=== PATIENT | female | born 1940 | race Caucasian/White ===

== ENCOUNTER 2022-11-13 13:49 | Emergency (ER) | payer MEDICARE, SELFPAY ==
[2022-11-13] VITALS (13 sets, daily range): BP systolic 118–163; BP diastolic 68–144; PULSE 85–96; RESP 18–20; TEMP 36.3; O2SAT 95–100
--- NOTE | ~2022-11-13 | US_ITS ---
EXAMINATION: US venous doppler [facility] DATE: 11/13/2022 14:35 INDICATION: REDNESS AND SWELLING . TECHNIQUE: Grayscale images without and with compression and Doppler images of the left lower extremi ty veins were obtained. COMPARISON: None FINDINGS: The left common femoral vein, profunda (deep) femoral vein, femoral vein, popliteal vein, peroneal v ein, posterior tibial veins, gastrocnemius vein, and greater saphenous vein are patent. Thrombosed to rtuous vessels in the subcutaneous tissues in the area of clinical concern. IMPRESSION: 1. Patent left lower extremity veins. No evidence of deep venous thrombosis. 2. 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 Reviewed, dictated and finalized at location K.
--- NOTE | ~2022-11-13 | CT_ITS ---
EXAMINATION: CT abdomen pelvis w con DATE: 11/13/2022 16:39 INDICATION: transaminitis, n/v/d, weight loss TECHNIQUE: Computed tomography (CT) of the abdomen and pelvis was performed with 100 mL Omnipaque-350 intravenous contrast. Automated exposure control and iterative reconstruction technique were employe d. The dose-length product was 321.06 mGy-cm. COMPARISON: None. FINDINGS: Lower thorax: Multiple bilateral sub-6 mm pulmonary nodules. Mild senescent/emphysematous change. Mil d bibasilar scar/atelectasis. Small fat-containing left diaphragmatic hernia. Liver: Mild hepatomegaly. Innumerable peripherally enhancing irregular hypodense liver lesions, the l argest in the medial aspect of the right lobe measuring at least 8.1 cm. Biliary/Gallbladder: Gallbladder wall calcification. No bile duct dilation. Pancreas: No mass or duct dilation. Spleen: Normal. Adrenals:No mass. Kidneys: Multiple left subcentimeter hypodensities, too small to characterize but most likely represe nt cysts. Simple right lower pole cyst. Punctate bilateral calculi. No suspicious mass, obstructing c alculus, or hydronephrosis. GI tract: Mild distal esophageal and gastric wall edema. No small or large bowel dilation. Normal anatoly endix. Mesentery/Peritoneum: No mass or free air. Enlarged upper abdominal and periaortic lymph nodes. Small volume ascites Retroperitoneum: No mass. Atherosclerotic abdominal aortic and/or arterial calcifications. Pelvis: Pelvic organs are within normal limits. Soft Tissues: Soft tissues and body wall unremarkable. Bones: No acute osseous finding. IMPRESSION: 1. Multiple sub-6 mm pulmonary nodules. 2. Innumerable liver masses, the largest measuring up to 8.1 cm, concerning for neoplastic disease. 3. Porcelain gallbladder. 4. Mild esophagitis/gastritis. 5. Mesenteric and periaortic lymphadenopathy. 6. Small volume ascites. Reviewed, dictated and finalized at location K.
--- NOTE | 2022-11-13 14:02 | ED.LOWEXIN ---
HPI - Extremity Injury (Lower) General Chief Complaint: Extremity Injury, Lower Stated Complaint: left leg pain Time Seen by Provider: 11/13/22 13:51 History of Present Illness HPI Narrative: Patient is a 82-year-old female here for evaluation of redness, swelling and pain to the left lower extremity. Patient states that she started to develop the symptoms about 2 weeks ago. The area is warm and tender to touch. She has been taking Tylenol with good relief of her symptoms. She denies any weakness, numbness, tingling, nausea, vomiting, fevers or chills at home. Patient's friend was concerned given the spreading redness in her extremity and recommended her to come to the ED. Additionally, patient reports unintentional 50 pound weight loss over the past 6 months, postprandial abdominal pain, frequent diarrhea with light-colored stools, nausea and decreased interest in p.o. She does not have a primary care doctor but called to make an appointment when his symptoms came on and has been unable to get into see them until November. She has never had a colonoscopy or seen a GI doctor. Related Data Home Medications Medication Instructions Recorded Confirmed No Home Medications 11/13/22 11/13/22 Allergies Allergy/AdvReac Type Severity Reaction Status Date / Time No Known Allergies Allergy Verified 11/13/22 14:01 Review of Systems Review of Systems: Gen: Denies fevers or chills Eyes: Denies eye pain or visual change ENT: Denies congestion Respiratory: Denies shortness of breath or cough CV: Denies chest pain or palpitations GI: Denies abdominal pain nausea, emesis or diarrhea : denies burning, urgency, frequency or hematuria Musculoskeletal: Denies back pain or muscle pain Neuro: Denies numbness, tingling, weakness or focal weakness Skin: Reports redness, swelling and pain to the left lower extremity Except as documented, all other systems reviewed and negative Exam Narrative: APPEARANCE: Well appearing, no pain in distress, well-nourished. Head: Normocephalic and atraumatic. EYES: PERRLA/EOMI, conjunctivae clear NOSE: No nasal drainage EARS: External ear normal in appearance THROAT: Oropharynx is clear. Mucous membranes are moist. NECK: Supple. No adenopathy, no masses. RESPIRATORY: Airway patent, respirations nonlabored. Clear to auscultation bilaterally, no rales, rhonchi, wheezing. CARDIOVASCULAR: 2+ DP and PT pulses bilaterally. Regular rate and rhythm without murmurs, rubs, or gallops. ABDOMINAL: Normoactive bowel sounds. Soft, nontender, nondistended. No rebound tenderness or guarding. MUSCULOSKELETAL: Extremities are warm and well-perfused. Moves all extremities well. No edema. NEURO: Normal speech. No focal neurologic deficits. SKIN: There is a 4 x 4 cm area of erythema to the left medial knee/popliteal fossa that is tender to palpation and warm to touch. there are venous stasis changes to the bilateral lower extremities. PSYCHIATRIC: Normal affect/mood. Course Vital Signs Vital signs: Vital Signs Temperature 97.4 F L 11/13/22 13:56 Pulse Rate 96 11/13/22 13:56 Respiratory Rate 20 11/13/22 13:56 Blood Pressure 118/91 H 11/13/22 13:56 Pulse Oximetry 100 11/13/22 13:56 Oxygen Delivery Room Air 11/13/22 13:56 Temperature 97.4 F L 11/13/22 13:56 Pulse Rate 85 11/13/22 18:16 Respiratory Rate 18 11/13/22 18:16 Blood Pressure 143/96 H 11/13/22 18:16 Pulse Oximetry 95 11/13/22 18:16 Oxygen Delivery Room Air 11/13/22 13:56 MDM - Extremity Injury (Lower) MDM Narrative Medical decision making narrative: 82-year-old female here for evaluation of redness and swelling to the left medial knee. Evidence of superficial thrombophlebitis on the ultrasound which likely explains her symptoms. NVID. Additionally, patient complaining of some chronic diarrhea, unintentional weight loss, GI symptoms x 6 months. her liver enzymes are markedly elevated (Alk phos >1500), CT scan o
[2022-11-13 14:26] LABS: Basophils Percent Auto 0.3 % (0.2-1.2); Eosinophils Percent Auto 0.1 % (0-4.4); Hemoglobin 12.5 g/dL (12.0-15.0); Immature Granulocyte Absolute 0.11 K/mm3 (0.00-0.031); Immature Granulocyte Percent A 0.8 % (0-0.5); Lymphocytes Absolute Auto 1.42 K/mm3 (0.9-3.2); Lymphocytes Percent Auto 9.7 % (18.3-44.2); Mean Corpuscular HGB Conc 32.9 g/dl (32-36); Mean Corpuscular Hemoglobin 29.8 pg (26-34); Mean Corpuscular Volume 90.7 fl (80-100); Neutrophils Percent Auto 82.1 % (45.5-73.1); Platelet Count Result 445 k/mm3 (150-375); Red Blood Count 4.19 M/mm3 (4.2-5.4); White Blood Count 14.6 K/mm3 (4.5-10.0)
[2022-11-13 14:36] LABS: INR 1.1
[2022-11-13 14:43] LABS: Alanine Aminotransferase 76 U/L (6-35); Albumin Level 3.5 g/dL (3.5-5.1); Alkaline Phosphatase 1465 U/L (38-126); Anion Gap 8 mmol/L (8-16); Aspartate Amino Transferase 170 U/L (14-36); Bilirubin,Total 1.6 mg/dL (0.2-1.3); Blood Urea Nitrogen 22 mg/dL (7-17); Calcium 8.2 mg/dL (8.4-10.2); Carbon Dioxide 24 mmol/L (22-30); Chloride 103 mmol/L (98-107); Estimated CRCL calculation 33 ml/min; Estimated Glomerular Filt Rate 60; Glucose 100 mg/dL (65-110); Potassium 4.3 mmol/L (3.4-5.0); Sodium 135 mmol/L (137-145)
[2022-11-13 15:22] LABS: Lipase 326 U/L (23-300)
[2022-11-13 19:06] LABS: Carcinoembryonic Antigen 34.2 ng/mL (0.0-3.0)
[2022-11-16 05:25] LABS: CA-125 87 U/mL (<35)
== END 2022-11-13 18:46 | disposition home or self-care (01) ==
PROVIDERS: Emergency Provider Physician Assistant; PCP Family Medicine
DX: I80.02 Phlebitis and thrombophlebitis of superficial vessels of left lower extremity (principal); R16.0 Hepatomegaly, not elsewhere classified; R91.8 Other nonspecific abnormal finding of lung field; K29.70 Gastritis, unspecified, without bleeding; K20.90 Esophagitis, unspecified without bleeding; K82.8 Other specified diseases of gallbladder
CPT/HCPCS: 36415; 74177; 80053; 82378; 83690; 85025; 85610; 85730; 86304; 93971; 99284; Q9967

== ENCOUNTER 2022-11-28 11:20 | Outpatient (CLI) | payer MEDICARE, SELFPAY ==
--- NOTE | ~2022-11-28 | CT_ITS ---
EXAMINATION:CT diagnostic chest w con DATE: 11/28/2022 11:54 INDICATION: Malignant neoplasm metastatic to lung. TECHNIQUE: Computed tomography (CT) of the chest was performed with 75 mL Omnipaque 350 intravenous c ontrast. Automated exposure control and iterative reconstruction technique were employed. The dose-le ngth product (DLP) was 129.67 mGy-cm. COMPARISON: CT abdomen and pelvis 11/13/2022 FINDINGS: There is mild atelectasis bilaterally. No pleural effusion. The heart size is normal. No pe ricardial effusion. There are acute pulmonary emboli in the right upper lobe, right middle lobe, righ t lower lobe, and left lower lobe. The heart size is normal. No pericardial effusion. There are coron bo artery calcifications. There are numerous masses in the liver. There are wall calcifications of t he gallbladder. There is severe cervical spondylosis and moderate thoracic spondylosis. There is mild chronic anterior wedging of multiple thoracic vertebral bodies. There is an old healed fracture of t he sternum. IMPRESSION: 1. Bilateral acute pulmonary emboli. I discussed this result with the patient by phone. She agreed to go to the ER. 2. Liver masses, consistent metastatic disease. Ultrasound-guided core needle biopsy is recommended. Reviewed, dictated and finalized at location A. IMPRESSION: 1. Bilateral acute pulmonary emboli. I discussed this result with the patient b y phone. She agreed to go to the ER. 2. Liver masses, consistent metastatic disease. Ultrasound-guided core needle b iopsy is recommended.
== END 2022-11-28 11:21 | disposition home or self-care (01) ==
LOC: ANHIMG 11:21
PROVIDERS: PCP Family Medicine; Visit Provider Internal Medicine Hematology & Oncology
DX: C78.00 Secondary malignant neoplasm of unspecified lung (principal); I26.99 Other pulmonary embolism without acute cor pulmonale; K76.89 Other specified diseases of liver
CPT/HCPCS: 71260; Q9967

== ENCOUNTER 2022-11-28 17:44 | Observation (INO) | payer MEDICARE, SELFPAY ==
[2022-11-28] VITALS (20 sets, daily range): BP systolic 108–136; BP diastolic 60–101; PULSE 76–102; RESP 14–23; TEMP 36.4–36.6; O2SAT 92–100; BMI 23.1
--- NOTE | ~2022-11-28 | US_ITS ---
EXAMINATION: US biopsy liver DATE: 11/29/2022 12:35 INDICATION: Liver mass. TECHNIQUE: The procedure including the risks, benefits, and alternatives was discussed with the patie nt. Risks discussed included bleeding and infection. The patient understood the risks and agreed to p roceed. The skin overlying the liver was prepped and draped in usual sterile fashion. Anesthetic was administered with 1% lidocaine subcutaneously. An 18 gauge core biopsy needle was then used to obta in 3 core biopsy specimens under continuous sonographic guidance. The entry site was cleaned and dres sed. There were no immediate complications. FINDINGS: Ultrasound images demonstrate the needle in an 8 cm ill-defined hypoechoic mass in the live r. IMPRESSION: 1. Ultrasound-guided core needle biopsy of a liver mass. Reviewed, dictated and finalized at location A.
--- NOTE | 2022-11-28 18:02 | ECG_ITS ---
Measurements Intervals [place] Rate: 85 P: 12 [place]: 131 QRS: -21 QRSD: 72 T: 14 QT: 337 QTc: 401 Interpretive Statements SINUS RHYTHM ANTERIOR INFARCT, AGE INDETERMINATE INFERIOR INFARCT, AGE INDETERMINATE ABNORMAL ECG NO PREVIOUS ECG AVAILABLE FOR COMPARISON Electronically Signed On 11-28-2022 20:24:02 CDT by Abdifatah Alcantara D.O.
[2022-11-28 18:13] LABS: Basophils Absolute Auto 0.1 K/mm3 (0.0-0.1); Basophils Percent Auto 0.4 % (0.2-1.2); Eosinophils Absolute Auto 0.1 K/mm3 (0-0.3); Eosinophils Percent Auto 0.6 % (0-4.4); Hematocrit 36.8 % (37.0-47.0); Hemoglobin 12.2 g/dL (12.0-15.0); Immature Granulocyte Percent A 1.2 % (0-0.5); Lymphocytes Absolute Auto 2.21 K/mm3 (0.9-3.2); Lymphocytes Percent Auto 13.7 % (18.3-44.2); Mean Corpuscular HGB Conc 33.2 g/dl (32-36); Mean Corpuscular Hemoglobin 30.3 pg (26-34); Mean Corpuscular Volume 91.3 fl (80-100); Mean Platelet Volume 9.4 fl (7.4-10.4); Monocytes Absolute Auto 1.6 K/mm3 (0.1-0.6); Monocytes Percent Auto 9.9 % (2.6-8.5); Neutrophils Percent Auto 74.2 % (45.5-73.1); Platelet Count Result 382 k/mm3 (150-375); Red Blood Count 4.03 M/mm3 (4.2-5.4); Red Cell Distribution Width 19.2 % (11.5-14.5); White Blood Count 16.2 K/mm3 (4.5-10.0)
[2022-11-28 18:24] LABS: INR 1.3; Partial Thromboplastin Time 35.9 SECONDS (22.3-36.8)
[2022-11-28 18:27] LABS: Alanine Aminotransferase 68 U/L (6-35); Anion Gap 8 mmol/L (8-16); Aspartate Amino Transferase 202 U/L (14-36); Bilirubin,Total 2.9 mg/dL (0.2-1.3); Blood Urea Nitrogen 19 mg/dL (7-17); Carbon Dioxide 25 mmol/L (22-30); Chloride 105 mmol/L (98-107); Estimated CRCL calculation 38 ml/min; Estimated Glomerular Filt Rate > 60; Glucose 110 mg/dL (65-110); Potassium 4.1 mmol/L (3.4-5.0); Sodium 138 mmol/L (137-145)
[2022-11-28] MEDS: ENOXAPARIN 60 MG/0.6 ML SYRINGE SUB-Q (18:57)
[2022-11-28 19:10] LABS: Alkaline Phosphatase 1615 U/L (38-126)
--- NOTE | 2022-11-28 19:17 | ED.RECABL ---
HPI - Recheck/Abnormal Lab/Rx General Chief Complaint: Recheck/Abnormal Lab/Rx Stated Complaint: abn Time Seen by Provider: 11/28/22 18:02 Source: patient and RN notes reviewed Mode of arrival: ambulatory Limitations: no limitations History of Present Illness HPI narrative: This is an 82 year old female who presents for evaluation of pulmonary emboli. Patient is currently being evaluated for metastatic disease by Dr. Palafox. He performed CT chest to assess and it showed bilateral pulmonary emboli. She denies chest pain, shortness of breath, dizziness or lightheadedness. She was diagnosed with thrombosed varicose vein to right leg on 11/12/22. She denies previous history of PE or DVT. They are still trying to assess source of her cancer. Prior to her ER visit in October, she states she has not seen a doctor in 20 years. Related Data Home Medications Medication Instructions Recorded Confirmed megestrol 400 mg/10 mL (40 mg/mL) mg 11/28/22 oral suspension Allergies Allergy/AdvReac Type Severity Reaction Status Date / Time No Known Allergies Allergy Verified 11/28/22 17:57 Review of Systems Constitutional: Constitutional: Denies weakness Cardiovascular: Cardiovascular: Denies syncope, Denies rapid heart rate, Denies irregular heart rhythm, Reports leg edema and Denies dyspnea Respiratory: Respiratory: Denies chest congestion, Denies hemoptysis, Denies excessive phlegm production and Denies dyspnea Gastrointestinal: Gastrointestinal: Denies abdominal pain, Denies hematochezia, Denies diarrhea and Denies vomiting Genitourinary: Genitourinary: Denies hematuria and Denies dysuria Musculoskeletal: Musculoskeletal: Denies joint swelling, Denies loss of height and Denies muscle weakness Neurologic: Denies syncope, Denies focal weakness and Denies weakness PMFSH Past Medical History Medical History (Updated 11/28/22 @ 20:43 by Alice Hinojosa DO) Mass of multiple sites of liver Metastatic disease Social History Social History Smoking status: Never smoker Lack of Transportation: No Lack of Food: Never True Current Housing: I Have Housing Concerned About Future Housing: No Difficulty Paying Gas/Electric Bills: No Difficulty Paying for Meds: No Currently Unemployed: No Education: Don't Know Difficulty w/ Childcare or Family Care: No Spiritual care concerns: No Exam Const: General: no acute distress and alert Nutritional Appearance: well nourished Orientation/consciousness: patient oriented x3 Limitations: no limitations HENMT: Head: normal to inspection Eyes: EOM: EOMs intact bilaterally Neck: Neck: normal visual inspection Chest: Chest palpation & inspection: normal inspection of the chest Resp: Effort & Inspection: normal respiratory effort Auscultation: clear to auscultation bilaterally Cardio: Rate: tachycardic Rhythm: regular rhythm Heart sounds: no murmurs GI: GI Palp: Yes Soft to palpation, No Tenderness to palpation present (GI), No Guarding due to palpation present (GI) and No Rigid due to palpation Auscultation: normal bowel sounds Skin: General skin exam: normal color Rashes: no rashes Neuro: General: patient oriented x3, moves all extremities and CN's II-XI intact bilaterally Extrem: General: normal to inspection Psych: Mental Status: mental status grossly normal Affect: normal affect Attitude: cooperative Course Consultations Consultation #1: I Discussed with Margarita about patient recent CT and today with pulmonary emboli but asymptomatic. Given dose of lovenox Date: 11/28/22 Time: 18:45 Vital Signs Vital signs: Vital Signs Temperature 97.6 F 11/28/22 17:44 Pulse Rate 102 H 11/28/22 17:44 Respiratory Rate 18 11/28/22 17:44 Blood Pressure 120/90 11/28/22 17:44 Pulse Oximetry 97 11/28/22 17:44 Temperature 97.9 F 11/28/22 20:40 Pulse Rate 76 11/28/22 20:40 Respiratory Rate 18 11/28/22 20:40 Blood Pressure
--- NOTE | 2022-11-28 20:22 | PM.IMHP ---
H&P: HPI History of Present Illness Date/Time: 11/28/22 20:22 Chief Complaint: Incidental finding of pulmonary embolism on CT chest Narrative: 82-year-old female with a past medical history of recent diagnosis of metastatic cancer of uncertain primary who presented to the ER from home after CT of the chest demonstrated incidental finding of bilateral pulmonary embolism. The patient was initially evaluated 11/13/2022 in the ER due to redness and swelling of the left lower extremity. She had venous Doppler at that time which demonstrated superficial venous thromboembolism. She had also been complaining of unintentional weight loss of 50 lb over the last 6 months, postprandial abdominal pain, decreased oral intake, nausea and frequent diarrhea. She had a CT of the abdomen and pelvis at that time which demonstrated multiple pulmonary nodules and innumerable liver masses the largest measuring 8.[address] also demonstrated in so findings of esophagitis and gastritis, porcelain gallbladder and mesenteric and para-aortic lymphadenopathy with a small volume of ascites. The patient did not have a primary care provider and had not seen a doctor in over 20 years. She has never had a colonoscopy. She has not had a breast exam or pelvic exam in at least 20 or 30 years. She was referred to Dr. Palafox from Oncology and Dr. Galdamez general surgery. Dr. Galdamez recommended the patient be referred to a hepatobiliary surgeon but the patient refused to stay in the hospital. Dr. Palafox requested a CA 125 which came back elevated at 87 and a carcinoembryonic Ag which came back elevated at [address] Palafox on the and at that time he ordered a CT of the chest with contrast. She underwent CT scan today which demonstrated bilateral acute pulmonary emboli and was referred to the ER by the radiologist who read the study for treatment. She reports that ever since her last ER visit her left leg is been giving her some trouble. She has felt a cord-like cannot behind her left knee and up into her thigh. She denied any increased lower extremity swelling compared to back in October. She reports that the pain has been improved when she uses warm compresses. She reports that ice makes the pain worse. She has been massaging the back of her leg without much relief in her symptoms. She denies any cough or cold symptoms. She denies any dyspnea on exertion. She is usually very active and does gardening and is completely independent in her activities of daily living. However given her recent diagnosis she has slowed down and has been trying to take it easy. She is tachycardic in the ER but her blood pressures were stable. She denies any palpitations. She reports that food just does not taste right. She reports early satiety. She has had a 40 lb weight loss since April. She was given therapeutic Lovenox and admitted to the hospital for observation. She states that she was referred to [facility] in [place] for a liver biopsy because it was going to takes too long to get any biopsy here. The early she could get the biopsy arranged at [facility] was the 1st week in December. She is supposed to follow-up with Dr. Palafox in 1 week. Review of Systems Review of Systems: 12 systems were reviewed with pertinent positives and negatives per HPI. Except as documented in the HPI, all other systems were reviewed and are negative. [facility] Past Medical History Medical History (Updated 11/29/22 @ 00:44 by Alice Hinojosa DO) Mass of multiple sites of liver Metastatic disease Surgical History Surgical History (Updated 11/29/22 @ 00:44 by Alice Hinojosa DO) Lipoma of left thigh Status post excision Status post cataract extraction of both eyes with insertion of intraocular lens Family History Family History (Updated 11/29/22 @ 00:46 by Alice Hinojosa DO) Daughter Diabetes mellitus Father , At age 75 Pneumonia Mother , At age 84
--- NOTE | 2022-11-28 20:59 | ADMGEN ---
This patient, Charo Carroll, was admitted to [facility] Surg Room 329-01. Patient/family oriented to hospital policies and general routines including ID bracelet, bed and alarms, visiting hours, pain management, procedures, bathroom and other care routines, personal items, smoking policy, room service/diet, and visiting hours. Information on how to activate the Rapid Response Team has been discussed. Patient/Family are encouraged to report perceived risks to care and to ask questions if they do not understand what they are told or what they should do.
[2022-11-29] VITALS (11 sets, daily range): BP systolic 121–134; BP diastolic 62–80; PULSE 70–97; RESP 12–18; TEMP 36.3–37; O2SAT 97–100; BMI 23.1
--- NOTE | 2022-11-29 | ECHO_ITS ---
Patient Info Name: Charo Carroll Age: 82 years : 1940 Gender: Female Ht: 63 in Wt: 126 lbs BSA: 1.60 m2 HR: 70 bpm BP: 123 / 60 mmHg Heart Rhythm: Sinus Rhythm Technical Quality: Good Exam Date: 11/29/2022 1:57 PM Exam Location: [facility] Patient Status: Outpatient Admit Date: 11/28/2022 Staff Ordering Physician: Alice Hinojosa DO Visual Merchandising Coordinator: Chelsea Huitron RDCS Attending Provider: Constantin Arguelles MD Referring Physician: Micaela CARRANZA; Exam Type: CA echo doppler color flow Study Info Indications - Bilateral pulmonary embolsm Complete two-dimensional, color flow and Doppler transthoracic echocardiogram is performed. Summary 1. Complete two-dimensional, color flow and Doppler transthoracic echocardiogram is performed. 2. Left ventricular chamber dimension is normal. 3. Left ventricular systolic function is normal, estimated at 65-70%. 4. The left ventricular diastolic function is grade I diastolic dysfunction. 5. E/e' 13 is mildly elevated. 6. There is mild aortic valve sclerosis. 7. There is trace mitral valve regurgitation. 8. There is mild to moderate tricuspid valve regurgitation. 9. No pulmonary hypertension, estimated pulmonary arterial systolic pressure is 38 mmHg. Left Ventricle E/e' 13 is mildly elevated. Left ventricular chamber dimension is normal. Left ventricular systolic function is normal, estimated at 65-70%. The left ventricular diastolic function is grade I diastolic dysfunction. Right Ventricle Right ventricular chamber dimension is normal. Right ventricular systolic function is normal. Left Atria Left atrial chamber dimension is normal. Right Atria Right atrial chamber dimension is normal. Aortic Valve The aortic valve is trileaflet. There is mild aortic valve sclerosis. There is no aortic valve stenosis. There is no aortic valve regurgitation. Pulmonic Valve There is no pulmonic regurgitation. Mitral Valve There is no mitral valve stenosis. There is trace mitral valve regurgitation. Tricuspid Valve There is mild to moderate tricuspid valve regurgitation. No pulmonary hypertension, estimated pulmonary arterial systolic pressure is 38 mmHg. Pericardium/Pleural There is no pericardial effusion. Inferior Vena Cava Normal inferior vena cava with >50% collapse upon inspiration consistent with normal right atrial pressure, 5 mmHg. Aorta The aortic root size at the sinus of Valsalva is normal. Left Ventricular Outflow Tract Name Value Normal LVOT 2D LVOT Diameter 2.0 cm LVOT Doppler LVOT Peak Gradient 6 mmHg LVOT Mean Gradient 3 mmHg LVOT VTI 22 cm LVOT VTI/AV VTI Ratio 0.7 LVOT Stroke Volume 73 ml LVOT CO 5.3 l/min LVOT CI 3.3 l/min/m2 Pulmonic Valve Name Value Normal RVOT Doppler
[2022-11-29 06:27] LABS: Basophils Absolute Auto 0.1 K/mm3 (0.0-0.1); Basophils Percent Auto 0.6 % (0.2-1.2); Eosinophils Absolute Auto 0.1 K/mm3 (0-0.3); Hematocrit 33.3 % (37.0-47.0); Hemoglobin 11.1 g/dL (12.0-15.0); Immature Granulocyte Absolute 0.18 K/mm3 (0.00-0.031); Immature Granulocyte Percent A 1.5 % (0-0.5); Lymphocytes Absolute Auto 1.53 K/mm3 (0.9-3.2); Lymphocytes Percent Auto 12.9 % (18.3-44.2); Mean Corpuscular HGB Conc 33.3 g/dl (32-36); Mean Corpuscular Hemoglobin 30.3 pg (26-34); Mean Platelet Volume 9.4 fl (7.4-10.4); Monocytes Absolute Auto 1.4 K/mm3 (0.1-0.6); Neutrophils Absolute Auto 8.5 K/mm3 (1.3-6.7); Platelet Count Result 315 k/mm3 (150-375); Red Blood Count 3.66 M/mm3 (4.2-5.4); Red Cell Distribution Width 19.2 % (11.5-14.5); White Blood Count 11.8 K/mm3 (4.5-10.0)
[2022-11-29 06:37] LABS: INR 1.3; Prothrombin Time 16.7 Seconds (11.1-14.7)
[2022-11-29 06:39] LABS: Partial Thromboplastin Time 49.6 SECONDS (22.3-36.8)
[2022-11-29 06:45] LABS: Alanine Aminotransferase 63 U/L (6-35); Albumin Level 2.7 g/dL (3.5-5.1); Anion Gap 7 mmol/L (8-16); Aspartate Amino Transferase 197 U/L (14-36); Blood Urea Nitrogen 15 mg/dL (7-17); Calcium 7.7 mg/dL (8.4-10.2); Carbon Dioxide 24 mmol/L (22-30); Chloride 104 mmol/L (98-107); Estimated CRCL calculation 50 ml/min; Estimated Glomerular Filt Rate > 60; Glucose 91 mg/dL (65-110); Potassium 4.2 mmol/L (3.4-5.0); Sodium 135 mmol/L (137-145)
[2022-11-29 08:07] LABS: Alkaline Phosphatase 1530 U/L (38-126)
--- NOTE | 2022-11-29 10:21 | PM.IMPN ---
Progress Note: A&P Assessment and Plan (1) Bilateral pulmonary embolism: Code(s): I26.99 - Other pulmonary embolism without acute cor pulmonale Status: Acute Assessment and Plan: Patient was started on Lovenox in the emergency department morning dose held due to plan for liver biopsy. After liver biopsy we will resume anticoagulation. (2) Widespread metastatic malignant neoplastic disease: Code(s): C80.0 - Disseminated malignant neoplasm, unspecified Status: Acute Assessment and Plan: Patient undergo liver biopsy today as there were numerous masses in the liver with elevated liver enzymes, elevated bilirubin, elevated alk-phos and elevated LDH (3) Periaortic lymphadenopathy: Code(s): R59.0 - Localized enlarged lymph nodes Status: Acute Assessment and Plan: See above (4) Ascites: Qualifiers: Ascites type: malignant Qualified Code(s): R18.0 - Malignant ascites Code(s): R18.8 - Other ascites Status: Acute Assessment and Plan: No abdominal pain no tenderness to palpation no suspicion of SBP (5) Mass of multiple sites of liver: Code(s): R16.0 - Hepatomegaly, not elsewhere classified Status: Acute Assessment and Plan: Patient did undergo liver biopsy today then resume anticoagulation. Patient has follow-up visit with Dr. Devine in 1 week (6) Pulmonary nodules: Code(s): R91.8 - Other nonspecific abnormal finding of lung field Status: Acute Assessment and Plan: See above (7) Mesenteric lymphadenopathy: Code(s): R59.0 - Localized enlarged lymph nodes Status: Acute Assessment and Plan: See above (8) Esophagitis with gastritis: Code(s): K29.70 - Gastritis, unspecified, without bleeding; K20.90 - Esophagitis, unspecified without bleeding Status: Acute Assessment and Plan: No pain but she does have early [place] when eating. Will begin PPI (9) Leukocytosis: Qualifiers: Leukocytosis type: leukemoid reaction Qualified Code(s): D72.823 - Leukemoid reaction Code(s): D72.829 - Elevated white blood cell count, unspecified Status: Acute Assessment and Plan: Suspected to be reactive to metastatic disease no source of infection identified or strongly suspected. Already improving without intervention. Plan After discussion with patient she would like to use this hospitalization to gather information to narrow down source of primary malignancy to guide discussion with Oncology regarding next steps. Patient is very independent and highly capable despite advanced age and advanced stage of disease. She has no pain and no dyspnea. Patient wishes for medical management of PE and wishes to be discharged home as soon as possible. Time Spent With Patient Time with patient: 25 - 35 minutes Subjective Date/time seen: 11/29/22 10:21 Interval history: 11/28: copied from previous note Incidental finding of pulmonary embolism on CT chest Narrative: 82-year-old female with a past medical history of recent diagnosis of metastatic cancer of uncertain primary who presented to the ER from home after CT of the chest demonstrated incidental finding of bilateral pulmonary embolism.? The patient was initially evaluated 11/13/2022 in the ER due to redness and swelling of the left lower extremity.? She had venous Doppler at that time which demonstrated superficial venous thromboembolism.? She had also been complaining of unintentional weight loss of 50 lb over the last 6 months, postprandial abdominal pain, decreased oral intake, nausea and frequent diarrhea.? She had a CT of the abdomen and pelvis at that time which demonstrated multiple pulmonary nodules and innumerable liver masses the largest measuring 8.[address] also demonstrated in so findings of esophagitis and gastritis, porcelain gallbladder and mesenteric and para-aortic lymphadenopathy with a small volume of ascite
[2022-11-29 10:49] LABS: Immature Reticulocyte Fraction 11.8 % (3.0-15.9); Reticulocyte Hemoglobin Conten 34.1 pg (28.2-35.7); Reticulocytes Absolute 0.08 M/mm3 (0.02-0.1)
[2022-11-29] MEDS: PANTOPRAZOLE SODIUM IV 40 MG VIAL IV PUSH (10:54)
[2022-11-29 11:05] LABS: Iron 42 ug/dL (37-170)
[2022-11-29 11:06] LABS: Bilirubin Direct 0.4 mg/dL (0-0.3); Lactate Dehydrogenase 443 U/L (120-246)
[2022-11-29 11:15] LABS: Percent Iron Saturation 26 % (20-50)
[2022-11-29 11:38] LABS: Vitamin D 25 Hydroxy 35.3 ng/mL
[2022-11-29] MEDS: ENOXAPARIN 60 MG/0.6 ML SYRINGE 55 MG SUB-Q (17:03)
--- NOTE | 2022-11-29 17:47 | PDONCCN ---
HPI - Date of Consult Date/Time: 11/29/22 17:47 Requesting Physician: Constantin Arguelles MD Primary Care Provider: Christy Mckeon MD - Consult Narrative Reason for consult: Metastatic cancer. Narrative: Charo Carroll is a 82 year old female who was seen in the hospital on November 22 with complain of 6 months history of intermittent diarrhea along with 40 lb weight loss. She was having intermittent nausea vomiting and left lower extremity swelling. She denies any previous history of malignancy. CT abdomen and pelvis was performed that showed innumerable liver masses with the largest 8.1 cm along with mesenteric and periaortic lymphadenopathy and small volume of ascites. CEA was elevated at 34 and CA 125 was 87. Patient was referred for ultrasound-guided liver biopsy and CT scan of the chest. CT scan of the chest was performed that showed bilateral acute pulmonary embolism. Patient was called to come back to the hospital where she was admitted. Patient underwent ultrasound-guided liver biopsy today and was started on Lovenox. Doppler studies also showed patent left lower extremity with no evidence of DVT. There was thrombosed varicose vein in the area of clinical concern. Review of Systems - Review of Systems All systems reviewed & are unremarkable except as noted in HPI and bel - Neurologic Denies syncope, Denies focal weakness, Denies weakness PMFSH Medical History: Medical History (Last Updated 11/29/22 @ 00:44 by Alice Hinojosa DO) Mass of multiple sites of liver Metastatic disease Surgical History: Surgical History (Last Updated 11/29/22 @ 00:44 by Alice Hinojosa DO) Lipoma of left thigh Status post excision Status post cataract extraction of both eyes with insertion of intraocular lens Family History: Family History (Last Updated 11/29/22 @ 00:46 by Alice Hinojosa DO) Daughter Diabetes mellitus Father , At age 75 Pneumonia Mother , At age 84 Jaundice Cancer - Social History Social History: Social History (Last Updated 11/29/22 @ 00:50 by Alice Hinojosa DO) Alcohol Use: Alcohol intake: current Alcohol use details: Rare and in small amounts Substance Use: Substance use: never Others: Spiritual care concerns: No Smoking Status: Smoking status: Never smoker Social Determinants of Health: Has the Lack of Transportation Kept You From Medical Appointments or From Getting Medications?: No Within the Past 12 Months, Were You Worried Whether Your Food Would Run Out Before You Got Money to Buy More?: Never True What is Your Housing Situation Today?: I Have Housing Are You Worried That in the Next 2 Months, You May Not Have Your Own Housing to Live In?: No Do You Have Trouble Paying Your Heating Or Electricity Bill?: No Do You Have Trouble Paying For Medicines?: No Are You Currently Unemployed and Looking for Work?: No Highest Level of Education Completed: Don't Know Do You Have Trouble With Childcare or the Care of a Family Member?: No Exam - Vital Signs Vital Signs - 24 hr 11/28/22 18:03 11/28/22 18:04 11/28/22 18:15 Temperature Pulse Rate 101 H 97 84 Respiratory Rate 23 H 22 H 22 H Blood Pressure 136/88 Pulse Oximetry 92 94 97 Oxygen Delivery 11/28/22 18:16 11/28/22 18:30 11/28/22 18:31 Temperature Pulse Rate 84 82 89 Respiratory Rate 20 20 18 Blood Pressure 123/78 117/68 Pulse Oximetry 96 96 96 Oxygen Delivery 11/28/22 18:57 11/28/22 19:00 11/28/22 19:15 Temperature Pulse Rate 90 78 76 Respiratory Rate 19 16 19 Blood Pressure Pulse Oximetry 96 97 93 Oxygen Delivery 11/28/22 19:30 11/28/22 19:45 11/28/22 20:00 Temperature Pulse Rate 83 81 Respiratory Rate 20 21 H 21 H Blood Pressure Pulse Oximetry 95 96 95 Oxygen Delivery 11/28/22 20:14 11/28/22 20:15 11/28/22 20:16 Temperature Pulse Rate 82
--- NOTE | 2022-11-29 18:38 | PC.NURSE ---
Pt is A&O4 female who participates and contributes in plan of care. Pt went for biopsy today and was compliant with plan of care. Pt was NPO for much of the day. Pt was resumed to a clear liquid diet and she tolerated well. Pt was then advanced to a regular diet and is tolerating well. Pt was changed from stand by to up ad kuldeep. Pt has been steady with ambulation. Pt reports no pain and expresses no needs at this time. Will continue to monitor pt.
[2022-11-30] VITALS: PULSE 70
[2022-11-30 04:00] VITALS: PULSE 86
[2022-11-30] MEDS: ENOXAPARIN 60 MG/0.6 ML SYRINGE 55 MG SUB-Q (05:48)
[2022-11-30 06:00] VITALS: BP 117/64; PULSE 76; RESP 16; TEMP 36.2; O2SAT 96
[2022-11-30 07:13] LABS: Basophils Absolute Auto 0.1 K/mm3 (0.0-0.1); Basophils Percent Auto 0.4 % (0.2-1.2); Eosinophils Absolute Auto 0.1 K/mm3 (0-0.3); Eosinophils Percent Auto 0.6 % (0-4.4); Hematocrit 33.4 % (37.0-47.0); Hemoglobin 11.1 g/dL (12.0-15.0); Immature Granulocyte Absolute 0.19 K/mm3 (0.00-0.031); Immature Granulocyte Percent A 1.5 % (0-0.5); Lymphocytes Absolute Auto 1.37 K/mm3 (0.9-3.2); Lymphocytes Percent Auto 10.8 % (18.3-44.2); Mean Corpuscular HGB Conc 33.2 g/dl (32-36); Mean Corpuscular Hemoglobin 30.2 pg (26-34); Mean Platelet Volume 9.3 fl (7.4-10.4); Monocytes Absolute Auto 1.5 K/mm3 (0.1-0.6); Monocytes Percent Auto 11.7 % (2.6-8.5); Neutrophils Absolute Auto 9.6 K/mm3 (1.3-6.7); Platelet Count Result 344 k/mm3 (150-375); Red Blood Count 3.67 M/mm3 (4.2-5.4); Red Cell Distribution Width 19.9 % (11.5-14.5); White Blood Count 12.7 K/mm3 (4.5-10.0)
[2022-11-30 07:42] LABS: Alanine Aminotransferase 61 U/L (6-35); Albumin Level 2.6 g/dL (3.5-5.1); Alkaline Phosphatase 1462 U/L (38-126); Anion Gap 3 mmol/L (8-16); Aspartate Amino Transferase 180 U/L (14-36); Bilirubin,Total 2.8 mg/dL (0.2-1.3); Blood Urea Nitrogen 15 mg/dL (7-17); Calcium 7.6 mg/dL (8.4-10.2); Carbon Dioxide 23 mmol/L (22-30); Chloride 105 mmol/L (98-107); Estimated CRCL calculation 50 ml/min; Estimated Glomerular Filt Rate > 60; Glucose 94 mg/dL (65-110); Potassium 3.8 mmol/L (3.4-5.0); Sodium 131 mmol/L (137-145)
[2022-11-30] MEDS: PANTOPRAZOLE SODIUM IV 40 MG VIAL IV PUSH (08:35)
[2022-11-30 08:45] VITALS: PULSE 95
--- NOTE | 2022-11-30 10:27 | PM.DS ---
DS: Admitting Diagnosis Discharge Date 11/30/2022 Admitting Diagnosis Bilateral pulmonary embolism Widespread metastatic malignant neoplastic disease Periaortic lymphadenopathy Ascites Mesenteric lymphadenopathy Pulmonary nodules Esophagitis with gastritis Mass of multiple sites of liver Leukocytosis DS: Discharge Diagnosis Discharge Diagnosis (1) Bilateral pulmonary embolism: Code(s): I26.99 - Other pulmonary embolism without acute cor pulmonale Status: Acute (2) Widespread metastatic malignant neoplastic disease: Code(s): C80.0 - Disseminated malignant neoplasm, unspecified Status: Acute (3) Mass of multiple sites of liver: Code(s): R16.0 - Hepatomegaly, not elsewhere classified Status: Acute (4) Esophagitis with gastritis: Code(s): K29.70 - Gastritis, unspecified, without bleeding; K20.90 - Esophagitis, unspecified without bleeding Status: Acute (5) Mesenteric lymphadenopathy: Code(s): R59.0 - Localized enlarged lymph nodes Status: Acute (6) Ascites: Qualifiers: Ascites type: malignant Qualified Code(s): R18.0 - Malignant ascites Code(s): R18.8 - Other ascites Status: Acute (7) Periaortic lymphadenopathy: Code(s): R59.0 - Localized enlarged lymph nodes Status: Acute (8) Leukocytosis: Qualifiers: Leukocytosis type: leukemoid reaction Qualified Code(s): D72.823 - Leukemoid reaction Code(s): D72.829 - Elevated white blood cell count, unspecified Status: Acute DS: Summary Hospital Course Reason for hospitalization: 82-year-old female patient who was admitted to the hospital due to bilateral pulmonary embolism noted on outpatient CT. Patient reported that she was undergoing continue outpatient workup with Dr. Palafox due to discovery of multiple liver masses presumed to be cancerous. She had CT of chest ordered and outpatient Liver Biopsy ordered. When CT scan was completed, bilateral pulmonary emboli noted and patient was sent to ER for admission. Hospital Course: Admitting provider ordered Ultrasound Guided biopsy of large liver mass which was completed. Patient started on Lovenox 1 mg/kg BID. Inpatient consult with Dr. Palafox yielded recommendation for discharge on Eliquis 10 mg BID for 7 days then 5 mg BID thereafter. Patient will see Dr. Palafox in the clinic in about 1 week for further discussion regarding cancer identification, treatment options, etc. Patient had good appetite while admitted and remained in good spirits. Patient remains independently and fully functional without assistance. Patient denied any difficulty breathing and had normal vital signs. Echo completed with findings as below. No supplemental oxygen required. Status at Discharge Cognitive/behavioral status at discharge: Awake, alert, oriented and extremely pleasant Functional status at discharge: independent ambulation Time Spent with Patient Time attestation: Total time spent providing and/or coordinating discharge services: Time spent: Less than 30 minutes Exam Narrative: Const:?? Other: No acute d istress, well-deve loped well-nourish ed, appears younge r than stated age ? HENMT:?? Other: Mucous mem branes are moist, no oral pharyngeal erythema, head is normocephalic atr aumatic ? Eyes:?? Other: Pupils are equal and reactiv e, evidence of tha or cataract extrac tion with lens rep lacement, minimal scleral icterus ? Neck:?? Other: No anterio r cervical or subm andibular lymphade
[2022-12-02 14:12] LABS: Red Blood Cell Folate 973 ng/mL RBC (>280)
[2022-12-03 04:44] LABS: Haptoglobin 247 mg/dL (43-212)
== END 2022-11-30 12:46 | disposition home or self-care (01) ==
LOC: ANHED 19:23 → ANH3MEDSUR 11-29 04:22
PROVIDERS: Internal Medicine; Admitting Provider Hospitalist; Emergency Provider General Practice; PCP Family Medicine; Visit Provider Nurse Practitioner
DX: I26.99 Other pulmonary embolism without acute cor pulmonale (principal); C80.0 Disseminated malignant neoplasm, unspecified; R16.0 Hepatomegaly, not elsewhere classified; K29.70 Gastritis, unspecified, without bleeding; R59.0 Localized enlarged lymph nodes; D72.823 Leukemoid reaction; R18.0 Malignant ascites; R00.0 Tachycardia, unspecified; I08.2 Rheumatic disorders of both aortic and tricuspid valves; R94.31 Abnormal electrocardiogram [ECG] [EKG]; Z66 Do not resuscitate; F10.90 Alcohol use, unspecified, uncomplicated; E80.6 Other disorders of bilirubin metabolism; R74.01 Elevation of levels of liver transaminase levels; Z79.899 Other long term (current) drug therapy
CPT/HCPCS: 36415; 47000; 71260; 76942; 80053; 82248; 82306; 82607; 82747; 83010; 83540; 83550; 83615; 85025; 85046; 85610; 85730; 88307; 88342; 93005; 93306; 96372; 96374; 96376; 99285; C9113; G0378; J1650; Q9967

== ENCOUNTER 2022-12-19 02:39 | Day surgery (SDC) | payer MEDICARE, SELFPAY ==
--- NOTE | 2022-12-12 14:26 | PC.NURSE ---
Report to the Outpatient Waiting Room, entrance under the green pavilion located off [facility], at time ___1000____ on date __12/19/22 . Planned Procedure Time: __1200 . Time changes happen often and if your time is changed the preop area will call you the afternoon before. - You and your visitor will be asked to self-screen and do not enter if you have any COVID symptoms. - A mask is optional within the hospital at this time. Patients may have clear liquids (water, carbonated beverages, clear teas, apple juice) until 3 hours prior to surgery with a maximum of 20 ounces. - No food from midnight until time of surgery - Infants may have breast milk until 4 hours before surgery, infant formula 6 hours prior to surgery. - Children will be allowed to drink immediately following surgery. If applicable, please bring a bottle or sippy cup to assist with drinking. Juice, water, soda, and popsicles are readily available. For infants on formula, please bring formula the day of surgery. Pacifiers are allowed. Take the following medications with a SIP of water the morning of surgery: ___NONE DO NOT STOP ANY OF YOUR OTHER PRESCRIPTION MEDICATIONS PRIOR TO SURGERY ?EXCEPT THE FOLLOWING Medications to discontinue per physician ___ELIQUIS 2 DAYS PRE OP .PER DR YANEZ. LAST DOSE 12/16/22____. ALL VITAMINS/SUPP 3 DAYS PRE OP .LAST DOSE 12/15/22 Please no make-up, nail kyrgyz, hairspray, perfume, deodorant, or body powder the day of surgery. No jewelry (including any body piercings) or valuables the day of surgery, leave them at home. Please take a shower or bath the night before, or the morning of, surgery with an antibacterial soap. Wear comfortable, loose fitting clothing. Children are encouraged to wear pajamas. - Jewelry must be removed prior to entering the operating room. Rings and piercings that are not removed may be cut off. - The hospital will not accept responsibility for valuables. - Please leave all valuables, including medications, at home the day of surgery. If you are going home after surgery, a licensed tower truck driver must drive you home. - NO public transportation without another adult if you receive anesthesia. - We recommend that an adult stay with you for 24 hours following discharge. - We also recommend that you do not drive, make important decision, drink alcoholic beverages, or take any drugs that were not prescribed by your health care provider for at least 24 hours after your discharge time. For Pediatric surgeries, we recommend two adults accompany the child home. Follow any additional instructions given to you from your surgeon. If you or anyone in your household have experienced Covid symptoms in the past week, please notify your surgeon or the nurse liaison at the phone number below for possible testing. Telephone instructions given to _PATIENT and asked if any additional questions and then verbalized understanding. Patient advised to call surgeon office or pre surgery nurse liaison [phone] if any additional questions.
[2022-12-12 14:32] VITALS: BMI 21.5
--- NOTE | 2022-12-18 14:19 | PM.SD2 ---
Same Day Admit/Disch: HPI History of Present Illness Chief complaint: Metastatic adenocarcinoma Narrative: Charo Carroll is a 82 year old female who was found to have multiple liver masses. Biopsies of these showed adenocarcinoma not likely from colon or rectal. 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 She is taken to surgery at this time for Port-A-Cath placement for administration of chemotherapy. She does have a history of bilateral pulmonary emboli. She has been taking Eliquis which has been held for the surgery. 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 She is and lives alone. Her only biological daughter is . She has a stepdaughter and a friend who would be her surrogate decision makers. She is a lifelong nonsmoker. She rarely drinks alcohol and only in small amounts. She denies any illicit substance use. 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 Code status: DNR/DNI (per patient request) Smoking status: Never smoker Alcohol intake: current Alcohol use details: Rare and in small amounts Substance use: never Lack of Transportation: No Lack of Food: Never True Current Housing: I Have Housing Concerned About Future Housing: No Difficulty Paying Gas/Electric Bills: No Difficulty Paying for Meds: No Currently Unemployed: No Education: Don't Know Difficulty w/ Childcare or Family Care: No Living arrangements: alone Spiritual care concerns: No Same Day Admit/Disch: Med Pre-admit Medications Home Medications Medication Instructions Recorded Confirmed Type apixaban 5 mg tablet (Eliquis) See Rx Instructions .Route 11/30/22 12/19/22 Rx .COMPLEX #74 tabs acetaminophen 500 mg capsule 500 mg PO Q6H PRN Pain 12/12/22 12/19/22 History multivitamin 1 tablet PO DAILY 12/12/22 12/19/22 History oxycodone-acetaminophen 5 mg-325 0.5 - 1 tablet PO Q6H PRN pain #10 12/19/22 Rx mg tablet tabs Exam Const: General: comfortable, no acute distress, alert and awake HENMT: Head: normocephalic and atraumatic Mouth: Yes Normal oral and palatal mucosa present Eyes: Conjunctivae: conjunctivae normal Pupils: Equal, round and reactive pupils present EOM: EOMs intact bilaterally Neck: Neck: normal visual inspection, no lymphadenopathy and nontender Resp: Effort & Inspection: normal respiratory effort Auscultation: clear to auscultation bilaterally Cardio: Rate: regular rate Rhythm: regular rhythm Heart sounds: no gallops, no murmurs and no rubs GI: Inspection: non-distended GI Palp: Yes Soft to palpation, No Tenderness to palpation present (GI), No Hepatomegaly present and No Splenomegaly present Skin: Lesions: no lesions Rashes: no rashes Neuro: General: no focal motor deficits and CN's II-XI intact bilaterally Cranial nerves: Yes Equal, round and reactive pupils present, Yes Bilaterally intact EOM present, Yes facial symmetry and Yes Midline tongue present Speech: normal speech Motor exam (neuro): 5/5 motor strength present throughout and Motor abnormalities not present Extrem: General: no clubbing, cyanosis or edema and edema Psych: Affect: normal affect Thought process: Normal thought process present I
--- NOTE | ~2022-12-19 | XR_ITS ---
EXAMINATION: XR chest port-a-cath/central INDICATION: Port-A-Cath insertion TECHNIQUE: Portable AP chest at 1308 hours COMPARISON: None available FINDINGS: A left subclavian Port-A-Cath ends with this tip in the midsuperior vena cava. No pleural e ffusion or pneumothorax. The cardiomediastinal silhouette is normal. A small amount of subcutaneous g as is seen in left upper chest wall and neck related to Port-A-Cath insertion. IMPRESSION: 1. No acute cardiopulmonary abnormality. 2. Small amount of subcutaneous gas in the left upper chest wall and neck related to catheter inserti on. Reviewed, dictated and finalized at location A. IMPRESSION: 1. No acute cardiopulmonary abnormality. 2. Small amount of subcutaneous gas in the left upper chest wall and neck relat ed to catheter insertion.
--- NOTE | ~2022-12-19 | XR_ITS ---
EXAMINATION: XR fl guide central line place INDICATION: Port-A-Cath insertion TECHNIQUE: A single fluoroscopic image is submitted for review. Total fluoroscopic time was 605.1 sec onds. COMPARISON: None available FINDINGS: Fluoroscopic image demonstrates a partially imaged left subclavian Port-A-Cath. Please refe r to procedure note for full details. IMPRESSION: 1. Partially imaged left subclavian Port-A-Cath. Please refer to procedure note for full details. Reviewed, dictated and finalized at location A.
[2022-12-19 10:03] VITALS: BP 119/73; PULSE 86; RESP 18; TEMP 36.4; O2SAT 100
[2022-12-19] MEDS: LACTATED RINGERS 1,000 ML 30 ML IV CONT (10:35)
[2022-12-19] MEDS: KETOROLAC 15 MG/ML VIAL (*BKC) IV PUSH (10:37)
--- NOTE | 2022-12-19 10:37 | WPDANESEPPF ---
Anes - Initial Pre Proc Eval Procedure: Operation Date: 12/19/22 11:00 Proposed Procedures p Insertion Manuel Cath - Curt Correa MD Date/Time: 12/19/22 10:37 Surgeon: Curt Correa MD Pre Op Diagnosis: Metastatic adenocarcinoma Patient Data Age: 82 Gender: F Height: 1.6 m Weight: 55.2 kg Last Vital Signs Temp 36.4 C L 12/19/22 10:03 Pulse 86 12/19/22 10:03 Resp 18 12/19/22 10:03 BP 119/73 12/19/22 10:03 Pulse Ox 100 12/19/22 10:03 O2 Del Method Room Air 12/19/22 10:03 Allergies Allergy/AdvReac Type Severity Reaction Status Date / Time No Known Allergies Allergy Verified 12/19/22 10:08 Home Medications Medication Instructions Recorded Confirmed Type apixaban 5 mg tablet (Eliquis) See Rx Instructions .Route 11/30/22 12/19/22 Rx .COMPLEX #74 tabs acetaminophen 500 mg capsule 500 mg PO Q6H PRN Pain 12/12/22 12/19/22 History multivitamin 1 tablet PO DAILY 12/12/22 12/19/22 History Laboratory Tests 12/19/22 10:19 PT Pending INR Pending APTT Pending Patient hx anesthesia problems: none Family hx anesthesia problems: none Results Review: All pre-operative results and documents have been reviewed as part of the pre-operative evaluation. 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 She is and lives alone. Her only biological daughter is . She has a stepdaughter and a friend who would be her surrogate decision makers. She is a lifelong nonsmoker. She rarely drinks alcohol and only in small amounts. She denies any illicit substance use. 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 Code status: DNR/DNI (per patient request) Smoking status: Never smoker Alcohol intake: current Alcohol use details: Rare and in small amounts Substance use: never Lack of Transportation: No Lack of Food: Never True Current Housing: I Have Housing Concerned About Future Housing: No Difficulty Paying Gas/Electric Bills: No Difficulty Paying for Meds: No Currently Unemployed: No Education: Don't Know Difficulty w/ Childcare or Family Care: No Living arrangements: alone Spiritual care concerns: No Anes - Eval Final PreProcedure Day of Procedure 12/19/22 10:37 Patient weight: normal Heart: regular rate and rhythm Lungs: clear to auscultation Airway: Mallampati scale class 1 Neurological: alert and oriented Last oral intake: >/= 8 hours ASA classification: IV Emergent: no Anesthetic plan: proceed Anesthesia type and monitoring: general GIVS and standard monitoring Results Review: All pre-operative results and documents have been reviewed as part of the pre-operative evaluation. Informed Consent: The patient's anesthetic plan and its attendant risks and benefits were discussed with the patient/family/POA. Questions were solicited and answers provided to the satisfaction of the patient/family/POA.
[2022-12-19 10:49] LABS: INR 1.3; Prothrombin Time 16.6 Seconds (11.1-14.7)
[2022-12-19 10:50] LABS: Partial Thromboplastin Time 34.3 SECONDS (22.3-36.8)
--- NOTE | 2022-12-19 11:02 | WPDHPUPDATE1 ---
History and Physical Update Update Date/Time: 12/19/22 11:02 History and Physical has been reviewed, including an updated exam of the patient. There are NO changes in the patient's condition. Risks, benefits, and alternatives have been discussed and questions answered. Patient agrees to proceed with procedure.
[2022-12-19] MEDS: ceFAZolin 2 GM/D5W 50 ML 2 GM/50 ML BAG IVPB (11:18)
[2022-12-19] MEDS: HEPARIN SODIUM 1,000 UNITS/ML VIAL 1000 UNITS IV PUSH (11:18)
[2022-12-19] MEDS: BUPIVACAINE/EPINEPHRINE 0.5% 10 ML VIAL 30 ML INFILTRATE (11:18)
--- NOTE | 2022-12-19 12:57 | PM.OP ---
Procedure Note - Brief Procedure Note - Brief Date of procedure: 12/19/22 Metastatic adenocarcinoma, inadequate venous access Post-op diagnosis: Same Procedure performed: Placement left subclavian vortex Port-A-Cath Surgeon: Curt Correa MD Anesthesia: MAC and local (0.25% Marcaine with epinephrine) Findings: Port-A-Cath tip in distal superior vena cava Description of procedure: Difficult placement. Initially could not cannulate left subclavian vein. Used ultrasound and cannulated left IJ but could not get the Port-A-Cath to pass into the superior vena cava. Made neck incisions and tunneled Port-A-Cath but still could not place via left internal jugular. Was about 2 band of the procedure but tried once more via the left subclavian and did cannulate the left subclavian vein. Port-A-Cath was placed via the left subclavian vein under fluoroscopy once the vein was cannulated. Implants: Vortex Port-A-Cath Estimated blood loss (mL): -20 Drains: No Packing: No Pathology: None sent Complications: No immediate complications Condition: Stable Disposition: Same day (Chest x-ray pending)
[2022-12-19 12:59] VITALS: BP 96/51; PULSE 73; RESP 16; O2SAT 99
[2022-12-19 13:25] VITALS: BP 116/75; PULSE 71; RESP 14; O2SAT 100
[2022-12-19 13:55] VITALS: BP 119/69; PULSE 72; RESP 16
--- NOTE | 2022-12-19 14:42 | W.PM.PROC2 ---
Procedure Note - Detailed Date of Procedure 12/19/22 Pre-op Diagnosis Metastatic adenocarcinoma, inadequate venous access Post-op Diagnosis Same Procedure Performed Attempted placement of left internal jugular Port-A-Cath using ultrasound under fluoroscopy, placement of left subclavian Port-A-Cath under fluoroscopy Surgeon Curt Correa MD Anesthesia General (G IV S) and Local (0.25% Marcaine with epinephrine) Indications Patient is noted to have multiple liver masses. 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 She is to have chemotherapy and is taken to surgery at this time for Port-A-Cath placement Findings There was very little if any space between the clavicle and the 1st rib from the subclavian approach. From the left internal jugular position, the catheter and guidewire would easily pass into the left brachial cephalic but would not pass into the superior vena cava. Reason for this is unclear although mediastinal adenopathy could certainly have been the cause. Eventually a left subclavian stick cannulated the vein and guidewire passed in the appropriate position with subsequent placement of the Port-A-Cath tubing in the SVC from the subclavian insertion. Procedure was to her 3 times longer than usual. Ultrasound was used to gain access to the internal jugular vein and more than 1 internal jugular cannulation was performed neither of which were successful in passing the guidewire into the superior vena cava. On 1 occasion, the guidewire had been in the right atrium but on pulling it back it was unable to be passed back into the superior vena cava. Unfortunately we had already made counter incisions in the left neck and tunneled the Port-A-Cath to that position. Description of Procedure Patient was taken to surgery and placed in a supine position. Anesthesia was introduced. Patient's head was turned slightly to the right. The left chest and left neck were prepped and draped. Patient had a very short neck. The proposed subclavian incision was marked on the skin. Local anesthetic was infiltrated in the skin and the deeper subcutaneous tissues. Incision was made and dissection was carried through the subcutaneous. Crossing veins were cauterized and divided. We continued dissection through the pectoralis major fascia. A subfascial pocket was then created. Additional local was infiltrated in the area of the pocket. Local was also infiltrated under the left clavicle. Using a 22 gauge needle, I tried multiple times to cannulate the left subclavian vein from the pocket. One cannulation was successful. I then tried using the larger needle to cannulate and really did not pass the clavicle 1st rib to get near the subclavian vein. I then turned to the patient's left neck and used the ultrasound. The internal jugular vein was able to be visualized. Patient was placed in steep Trendelenburg. The internal jugular vein was cannulated and a guidewire was passed into the left brachial cephalic but it could not be passed into the superior vena cava despite multiple efforts. Fluoroscopy was used multiple times to document the position and attempt to pass the guidewire. I removed the guidewire and then tried again at the subclavian cannulation site. Again I was not able to cannulate or even approach the subclavian vein. I went again to the ultrasound and found the internal jugular vein. I used ultrasound to cannulate the internal jugular vein. A guidewire was able to be passed on this occasion the guidewire did go into the right atrium by fluoroscopy. I then tunneled the Port-A-Cath tubing from the subclavian pocket through 3 counter incisions an out the exit site of the guidewire. I pulled the guidewire back to some degree so that it was in the SVC. I then passed the dilator and sheath over the guidewire. The guidewire pulled back and I could not pass the dilator and sheath clearly into the superior vena cava. I trie
== END 2022-12-19 14:23 | disposition home or self-care (01) ==
PROVIDERS: PCP Family Medicine; Visit Provider Surgery
PROC: (CPT 36561; principal; 2022-12-19 11:00)
DX: C80.0 Disseminated malignant neoplasm, unspecified (principal); C78.7 Secondary malignant neoplasm of liver and intrahepatic bile duct; Z79.01 Long term (current) use of anticoagulants
CPT/HCPCS: 36561; 36415; 77001; 85610; 85730; C1788; J0690; J1644; J1885; J2001; J2704; J3010; J7030; J7120

== ENCOUNTER 2023-01-17 13:49 | Outpatient (CLI) | payer MEDICARE, SELFPAY ==
--- NOTE | ~2023-01-17 | XR_ITS ---
XR chest 2V 01/17/2023 14:12 Indication: Complication of chemotherapy Procedure: 2 view chest Comparison: 12/19/2022 Findings: Heart size is normal. Port catheter tip in the SVC. No focal air space disease, pulmonary e trista, pleural effusion or suspected pneumothorax. No acute osseous abnormality. 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 Impression: 1: No acute cardiopulmonary disease. Reviewed, dictated and finalized at location B. Impression: 1: No acute cardiopulmonary disease.
== END 2023-01-17 13:50 | disposition home or self-care (01) ==
PROVIDERS: PCP Family Medicine; Visit Provider Surgery
DX: T82.9XXA Unspecified complication of cardiac and vascular prosthetic device, implant and graft, initial encounter (principal)
CPT/HCPCS: 71046

== ENCOUNTER 2023-01-23 01:05 | Day surgery (SDC) | payer MEDICARE, SELFPAY ==
[2023-01-16 09:40] VITALS: BMI 21.4
--- NOTE | 2023-01-16 09:48 | PC.NURSE ---
Report to the Outpatient Waiting Room, entrance under the green pavilion located off [facility], at time __1230 on date __01/23/23 . Planned Procedure Time: __2:30 PM . Time changes happen often and if your time is changed the preop area will call you the afternoon before. - You and your visitor will be asked to self-screen and do not enter if you have any COVID symptoms. - A mask is optional within the hospital at this time. Patients may have clear liquids (water, carbonated beverages, clear teas, apple juice) until 3 hours prior to surgery (1130AM) with a maximum of 20 ounces. - No food from midnight until time of surgery - Infants may have breast milk until 4 hours before surgery, infant formula 6 hours prior to surgery. - Children will be allowed to drink immediately following surgery. If applicable, please bring a bottle or sippy cup to assist with drinking. Juice, water, soda, and popsicles are readily available. For infants on formula, please bring formula the day of surgery. Pacifiers are allowed. Take the following medications with a SIP of water the morning of surgery: _TYLENOL, ZOFRAN IF NEEDED__ DO NOT STOP ANY OF YOUR OTHER PRESCRIPTION MEDICATIONS PRIOR TO SURGERY ?EXCEPT THE FOLLOWING Medications to discontinue _ROOSEVELT CALL DR. YANEZ'S OFFICE FOR INSTRUCTIONS_ Medications to discontinue per ANESTHESIA - _MULTIVITAMIN 3 DAYS PRIOR TO SURGERY, Date to take last dose 01/19/23_ Please no make-up, nail hebrew, hairspray, perfume, deodorant, or body powder the day of surgery. No jewelry (including any body piercings) or valuables the day of surgery, leave them at home. Please take a shower or bath the night before, or the morning of, surgery with an antibacterial soap. Wear comfortable, loose fitting clothing. Children are encouraged to wear pajamas. - Jewelry must be removed prior to entering the operating room. Rings and piercings that are not removed may be cut off. - The hospital will not accept responsibility for valuables. - Please leave all valuables, including medications, at home the day of surgery. If you are going home after surgery, a licensed city route driver must drive you home. - NO public transportation without another adult if you receive anesthesia. - We recommend that an adult stay with you for 24 hours following discharge. - We also recommend that you do not drive, make important decision, drink alcoholic beverages, or take any drugs that were not prescribed by your health care provider for at least 24 hours after your discharge time. For Pediatric surgeries, we recommend two adults accompany the child home. Follow any additional instructions given to you from your surgeon. If you or anyone in your household have experienced Covid symptoms in the past week, please notify your surgeon or the nurse liaison at the phone number below for possible testing. Telephone instructions given to ____PT and asked if any additional questions and then verbalized understanding. Patient advised to call surgeon office or pre surgery nurse liaison [phone] if any additional questions.
--- NOTE | 2023-01-22 12:36 | PM.SD2 ---
Same Day Admit/Disch: HPI History of Present Illness Chief complaint: olya cath malfunction Narrative: Charo Carroll is a 82 year old female who has liver masses and is being treated for metastatic biliary cancer. She had a left subclavian Port-A-Cath placed about 1 month ago. This was a difficult placement as the left subclavian vein was hard to cannulate. Left IJ approach using ultrasound was also attempted but the guidewire could not be directed into the superior vena cava. Eventually a left subclavian cannulation was performed and the Port-A-Cath was placed. However, while attempting to receive chemotherapy they have had trouble with the Port-A-Cath infusing or aspirating blood. It was declotted once but has still been a problem. Chest x-ray shows the tip of the Port-A-Cath as pulled back significantly. Patient is now taken back to surgery for either revision or replacement of the Port-A-Cath to continue her chemotherapy. 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 She is and lives alone. Her only biological daughter is . She has a stepdaughter and a friend who would be her surrogate decision makers. She is a lifelong nonsmoker. She rarely drinks alcohol and only in small amounts. She denies any illicit substance use. 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 Code status: DNR/DNI (per patient request) Smoking status: Never smoker Second hand tobacco smoke exposure: No Alcohol intake: never Alcohol use details: Rare and in small amounts Substance use: never Substance use type: does not use Lack of Transportation: No Lack of Food: Never True Current Housing: I Have Housing Concerned About Future Housing: No Difficulty Paying Gas/Electric Bills: No Difficulty Paying for Meds: No Currently Unemployed: No Education: Don't Know Difficulty w/ Childcare or Family Care: No Living arrangements: alone Spiritual care concerns: No Same Day Admit/Disch: Med Pre-admit Medications Home Medications Medication Instructions Recorded Confirmed Type apixaban 5 mg tablet (Eliquis) See Rx Instructions .Route 11/30/22 01/23/23 Rx .COMPLEX #74 tabs acetaminophen 500 mg capsule 500 mg PO Q6H PRN Pain 12/12/22 01/23/23 History multivitamin 1 tablet PO DAILY 12/12/22 01/23/23 History furosemide 20 mg tablet 20 mg DAILY 01/16/23 01/23/23 History ondansetron 8 mg disintegrating 8 mg Q8H PRN NAUSA 01/16/23 01/23/23 History tablet potassium chloride 20 mEq 20 meq PO DAILY 01/16/23 01/23/23 History tablet,extended release(part/cryst) tramadol 50 mg tablet 50 mg PO Q6H PRN pain #10 tabs 01/23/23 Rx Review of Systems Review of Systems All systems reviewed & are unremarkable except as noted in HPI and below (HPI and those items noted below) Constitutional Constitutional: Denies chills and Denies fever(s) Cardiovascular Cardiovascular: Denies chest pain, Denies diaphoresis, Denies dyspnea and Denies paroxysmal nocturnal dyspnea Respiratory Respiratory: Denies chest congestion, Denies cough and Denies dyspnea Integumentary/Breasts Skin/Breast: Denies lesions and Denies rash Exam Const: General: comfortable, no acute dis
--- NOTE | ~2023-01-23 | XR_ITS ---
EXAMINATION: XR fl guide central line place DATE: 01/23/2023 14:26 INDICATION: Port placement TECHNIQUE: A single intraoperative fluoroscopic view of the chest was obtained. I was not present. Fl uoroscopy exposure time was 83 seconds. COMPARISON: Chest single view 01/23/2023 FINDINGS: There is a right subclavian port with tip in right atrium. IMPRESSION: 1. Right subclavian port with tip in right atrium. Reviewed, dictated and finalized at location E.
--- NOTE | ~2023-01-23 | XR_ITS ---
EXAMINATION: XR chest port-a-cath/central DATE: 01/23/2023 14:47 INDICATION: Port placement. TECHNIQUE: A single frontal view of the chest was obtained. COMPARISON: Chest 2 views 01/17/2023, CT chest 11/28/2022 FINDINGS: There is mild atelectasis in right midlung zone. No pleural effusion or pneumothorax. The h eart size is normal. There is a right subclavian port with tip at superior cavoatrial junction. There are wall calcifications of the gallbladder (porcelain gallbladder). IMPRESSION: 1. Port tip at superior cavoatrial junction. 2. Mild atelectasis in right midlung zone. 3. Porcelain gallbladder. Reviewed, dictated and finalized at location E.
--- NOTE | 2023-01-23 08:54 | WPDANESEPPF ---
Anes - Initial Pre Proc Eval Procedure: Operation Date: 01/23/23 13:00 Proposed Procedures p Manuel Cath Revision - Curt Correa MD Date/Time: 01/23/23 08:54 Surgeon: Curt Correa MD Pre Op Diagnosis: manuel cath malfunction Patient Data Age: 82 Gender: F Height: 1.6 m Weight: 54.8 kg Allergies Allergy/AdvReac Type Severity Reaction Status Date / Time No Known Allergies Allergy Verified 01/23/23 11:27 Home Medications Medication Instructions Recorded Confirmed Type apixaban 5 mg tablet (Eliquis) See Rx Instructions .Route 11/30/22 01/23/23 Rx .COMPLEX #74 tabs acetaminophen 500 mg capsule 500 mg PO Q6H PRN Pain 12/12/22 01/23/23 History multivitamin 1 tablet PO DAILY 12/12/22 01/23/23 History furosemide 20 mg tablet 20 mg DAILY 01/16/23 01/23/23 History ondansetron 8 mg disintegrating 8 mg Q8H PRN NAUSA 01/16/23 01/23/23 History tablet potassium chloride 20 mEq 20 meq PO DAILY 01/16/23 01/23/23 History tablet,extended release(part/cryst) Patient hx anesthesia problems: none Family hx anesthesia problems: none Results Review: All pre-operative results and documents have been reviewed as part of the pre-operative evaluation. 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 She is and lives alone. Her only biological daughter is . She has a stepdaughter and a friend who would be her surrogate decision makers. She is a lifelong nonsmoker. She rarely drinks alcohol and only in small amounts. She denies any illicit substance use. 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 Code status: DNR/DNI (per patient request) Smoking status: Never smoker Second hand tobacco smoke exposure: No Alcohol intake: never Alcohol use details: Rare and in small amounts Substance use: never Substance use type: does not use Lack of Transportation: No Lack of Food: Never True Current Housing: I Have Housing Concerned About Future Housing: No Difficulty Paying Gas/Electric Bills: No Difficulty Paying for Meds: No Currently Unemployed: No Education: Don't Know Difficulty w/ Childcare or Family Care: No Living arrangements: alone Spiritual care concerns: No Anes - Eval Final PreProcedure Day of Procedure 01/23/23 08:54 Patient weight: normal Heart: regular rate and rhythm Lungs: clear to auscultation and normal air movement Airway: Mallampati scale class 1 Neurological: alert and oriented Last oral intake: >/= 8 hours ASA classification: IV Emergent: no Anesthetic plan: proceed Anesthesia type and monitoring: general GIVS and standard monitoring Results Review: All pre-operative results and documents have been reviewed as part of the pre-operative evaluation. Informed Consent: The patient's anesthetic plan and its attendant risks and benefits were discussed with the patient/family/POA. Questions were solicited and answers provided to the satisfaction of the patient/family/POA.
[2023-01-23 11:40] VITALS: BP 97/66; PULSE 78; RESP 18; TEMP 36.8; O2SAT 95
[2023-01-23] MEDS: LACTATED RINGERS 1,000 ML 30 ML IV CONT (11:50)
--- NOTE | 2023-01-23 12:19 | WPDHPUPDATE1 ---
History and Physical Update Update Date/Time: 01/23/23 12:19 History and Physical has been reviewed, including an updated exam of the patient. There are NO changes in the patient's condition. Risks, benefits, and alternatives have been discussed and questions answered. Patient agrees to proceed with procedure.
[2023-01-23] MEDS: ceFAZolin 2 GM/D5W 50 ML 2 GM/50 ML BAG IVPB (13:13)
[2023-01-23] MEDS: BUPIVACAINE/EPINEPHRINE 0.5% 10 ML VIAL INFILTRATE (14:24)
[2023-01-23] MEDS: HEPARIN SODIUM 1,000 UNITS/ML VIAL 1000 UNITS XX (14:25)
[2023-01-23 14:31] VITALS: BP 90/75; PULSE 80; RESP 16; O2SAT 96
[2023-01-23 15:00] VITALS: BP 103/84; PULSE 86; RESP 16; O2SAT 97
[2023-01-23 15:30] VITALS: BP 95/58; PULSE 75; RESP 18
--- NOTE | 2023-01-23 19:22 | PM.OP ---
Procedure Note - Brief Procedure Note - Brief Date of procedure: 01/23/23 olya cath malfunction Post-op diagnosis: Same Procedure performed: Removal left subclavian Port-A-Cath, placement right subclavian Port-A-Cath under fluoroscopy Surgeon: Curt Correa MD Anesthesia: MAC and local Findings: Tip in the distal SVC Description of procedure: Patient was taken to surgery. We opened the left subclavian Port-A-Cath pocket. There was no evidence of healing and there very large pocket. There was some cloudy fluid in the pocket as well. I was concerned that if a Port-A-Cath was placed here, it may result in infection. We removed the Port-A-Cath and closed the wound in layers. I moved to the right side of the patient and exposed the previously prepped and draped right upper chest. A single puncture was used to cannulate the right subclavian vein. Using fluoroscopy and the Seldin sure technique, a right subclavian Port-A-Cath was placed. It flushed well and appeared to be working quite well. The wound was closed in layers. Estimated blood loss (mL): -5 Pathology: None sent Complications: No immediate complications Condition: Stable Disposition: Same day
--- NOTE | 2023-01-24 09:42 | W.PM.PROC2 ---
Procedure Note - Detailed Date of Procedure 01/23/23 Pre-op Diagnosis olya cath malfunction Post-op Diagnosis Same Procedure Performed Removal left subclavian Port-A-Cath, placement new right subclavian Port-A-Cath under fluoroscopy Surgeon Curt Correa MD Anesthesia MAC and Local Indications Patient had difficult placement of a left subclavian Port-A-Cath. It was no longer able to infuse. Imaging shows the Port-A-Cath tip seems to a pulled back into the innominate vein. She is taken to surgery now for replacement of either a new left subclavian Port-A-Cath or possibly a right sided subclavian or internal jugular Port-A-Cath. Findings The left subclavian Port-A-Cath pocket showed a little signs of healing and was a large flap that had some cloudy fluid within it. It was worrisome for potential postop infection if new Port-A-Cath placed here. Right-sided Port-A-Cath placed without difficulty in the right subclavian vein with Port-A-Cath tip in the distal SVC right atrial junction. Description of Procedure The patient was taken to surgery and sedation was introduced. Both the left and right upper chest and neck were prepped and draped. We started on the patient's left side. Local was infiltrated over the previous Port-A-Cath incision as well as around the Port-A-Cath itself. Incision was made and dissection was carried down to the Port-A-Cath tubing. We then opened the rest of the pocket and found that there was still a large pocket and there was some cloudy serous fluid within it. There was no purulent fluid. Port-A-Cath was still secured to the pectoralis major muscle and had not flipped over or otherwise changed its position. The sutures were divided and the Port-A-Cath was removed. It appeared to be completely intact. There was no back bleeding from the Port-A-Cath tract. The wound was irrigated and then closed in layers with subcutaneous interrupted 3-0 Vicryl suture followed by subcuticular interrupted 3-0 Vicryl suture. I then moved to the patient's right side and cut holes in the draped to expose the right subclavian area and right neck. Local was infiltrated under the right clavicle and venous blood was returned. Single puncture was used to cannulate the right subclavian vein and a guidewire passed into the superior vena cava without difficulty. This was confirmed by C-arm fluoroscopy. I then infiltrated local anesthesia into the skin and subcutaneous in anticipation of making a skin incision at the level of the guidewire and then creating a subcutaneous pocket. Cautery was used for hemostasis and to dissect down through the pectoralis major fascia. A subfascial pocket was then created. Cautery was used for hemostasis. I then used fluoroscopy to overlay the Port-A-Cath tubing over the guidewire an estimate the length of tubing that would be needed for appropriate positioning. Port-A-Cath was then cut to the appropriate length. An introducer and sheath were then passed over the guidewire under fluoroscopy into the SVC. The introducer and guidewire were removed. Port-A-Cath tubing was advanced through the sheath and fluoroscopy showed that the Port-A-Cath tubing appeared to be in good position and at an appropriate length. The sheath was removed. Port-A-Cath was placed in the pocket. There was still some back bleeding from the venous insertion of the Port-A-Cath tubing. I placed a rather loosely applied pursestring suture of 3-0 Vicryl around the Port-A-Cath tubing as it exited the pocket to proceed into the right subclavian vein. This seemed to take care of any residual oozing from the insertion site. Port-A-Cath was checked several times. It aspirated blood well and flushed easily with heparin. Port-A-Cath was sutured to the pectoralis major muscle with 3-0 silk suture. All looked good. We closed the pocket with subcutaneous interrupted suture of 3-0 Vicryl. Subcuticular 3-0 Vicryl skin sutures were placed followed by a mariluzn
== END 2023-01-23 15:45 | disposition home or self-care (01) ==
PROVIDERS: PCP Family Medicine; Visit Provider Surgery
PROC: (CPT 36590; principal; 2023-01-23 13:00)
DX: T82.524A Displacement of infusion catheter, initial encounter (principal); C24.9 Malignant neoplasm of biliary tract, unspecified; C79.9 Secondary malignant neoplasm of unspecified site; Y83.8 Other surgical procedures as the cause of abnormal reaction of the patient, or of later complication, without mention of misadventure at the time of the procedure; Z79.01 Long term (current) use of anticoagulants; Z86.718 Personal history of other venous thrombosis and embolism
CPT/HCPCS: 36590; 36561; 77001; C1788; J0690; J1644; J2704; J3010; J7030; J7120

== ENCOUNTER 2023-01-28 14:37 | Inpatient (IN) | payer MEDICARE, SELFPAY ==
--- NOTE | ~2023-01-28 | US_ITS ---
EXAMINATION: US venous doppler [facility] DATE: 01/29/2023 21:06 INDICATION: Lower extremity pain swelling and redness. TECHNIQUE: Grayscale images without and with compression and Doppler images of the bilateral lower ex tremity veins were obtained. COMPARISON: 11/13/2022 FINDINGS: The right common femoral vein, profunda (deep) femoral vein, femoral vein, popliteal vein, peroneal v ein, posterior tibial veins, gastrocnemius vein, and greater saphenous vein are patent. Skin discolor ation. Pitting edema. The left common femoral vein, profunda (deep) femoral vein, femoral vein, popliteal vein, peroneal v ein, posterior tibial veins, gastrocnemius vein, and greater saphenous vein are patent. Skin discolor ation. Pitting edema. IMPRESSION: Patent bilateral lower extremity veins. No evidence of deep venous thrombosis. Bilateral lower extremity skin discoloration and pitting edema. Reviewed, dictated and finalized at location K.
--- NOTE | ~2023-01-28 | CT_ITS ---
IMPRESSION: 1. Anasarca with small bilateral pleural effusions, small pericardial effusion, moderate to large amount of ascites and extensive mesenteric and body wall shayne ma. 2. Numerous hypodense masses throughout the enlarged liver consistent with biop sy-proven metastatic disease. 3. Suggestion of some wall thickening along the descending and sigmoid colon wh ich could be due to colitis. Alternatively this could also be related to anasar ca which is of indeterminate etiology. 4. 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 5. No significant change in mild para-aortic lymphadenopathy which could be uri ctive or metastatic. EXAMINATION: CT abdomen pelvis wo con DATE: 01/29/2023 16:55 INDICATION: Infection. Biliary cancer. TECHNIQUE: Computed tomography (CT) of the abdomen and pelvis was performed without intravenous contr ast. Automated exposure control and iterative reconstruction technique were employed. The dose-length product was 409.50 mGy-cm. COMPARISON: None FINDINGS: Small bilateral pleural effusions, left greater than right. Dependent compressive atelectasis in the bilateral lower lobes heart size is normal. Atherosclerotic coronary artery calcifications. Tip of a central venous catheter extends caudally into the right atrium. Small pericardial effusion. Hepatomeg jaida with nodular liver surface suggestive of cirrhosis. There are multiple hypodense lesions scattere d throughout the liver with relatively ill-defined margins measuring up to 3 cm consistent with biops y-proven metastatic disease with pathology read as moderately differentiated adenocarcinoma. Chronic gallbladder wall calcification. Spleen, pancreas, right kidney and bilateral adrenal glands are tal l. 2 mm nonobstructing stone in upper pole calyx of the left kidney. Moderate to large amount of asci guillermo throughout the abdomen and pelvis. No bowel obstruction. Suggestion of some mild wall thickening to the distal descending and sigmoid colon although assessment is limited by the presence of ascites. Bladder is normal. Normal for age and atrophic uterus. No abscess or free intraperitoneal gas. Exten sive mesenteric and body wall edema. Again seen are several mildly prominent para-aortic lymph nodes which may be metastatic. Chronic mild anterior wedging of a few mid and lower thoracic vertebral bodi es. Mild to moderate thoracic and lumbar spondylosis. No suspicious lytic or blastic bone lesions. IMPRESSION: 1. Anasarca with small bilateral pleural effusions, small pericardial effusion, moderate to large ree unt of ascites and extensive mesenteric and body wall edema. 2. Numerous hypodense masses throughout the enlarged liver consistent with biopsy-proven metastatic d isease. 3. Suggestion of some wall thickening along the descending and sigmoid colon which could be due to co litis. Alternatively this could also be related to anasarca which is of indeterminate etiology. 4. 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 5. No significant change in mild para-aortic lymphadenopathy which could be reactive or metastatic. Reviewed, dictated and finalized at location A.
--- NOTE | ~2023-01-28 | MR_ITS ---
EXAMINATION: MR MRCP wo/w con/w 3D wo ind DATE: 02/04/2023 12:31 INDICATION: Metastatic biliary cancer. Abnormal liver function tests. TECHNIQUE: Magnetic resonance imaging (MRI) of the abdomen was performed without and with 10 mL Multi Irvin intravenous contrast. Sequences included coronal T2-weighted FS FSE, coronal T2-weighted FSE, a xial T1-weighted LAVA, coronal FS FIESTA, axial dual-echo T1-weighted SPGR, coronal lava-FLEX, sagitt al T2-weighted FSE, axial T2-weighted FSE, and axial DWI. Thick-slab T2-weighted FSE images were obta ined for magnetic resonance cholangiopancreatography (MRCP). Maximum intensity projection 3-D reconst ructions of the volumetric data were created by the technologist. Postcontrast sequences included cor onal LAVA-flex and time course of axial T1-weighted LAVA. COMPARISON: CT abdomen and pelvis 01/29/2023 FINDINGS: ABDOMEN MRI: There are small pleural effusions. There are innumerable masses in the liver measuring u p to 2.6 cm . There are gallstones in the gallbladder, which is normal in size. The spleen, pancreas, adrenal glands, and left kidney are normal. There is a 9 mm cyst in right kidney. There is a large v olume of ascites. There are no dilated loops of bowel. There is periportal and aortocaval lymphadenop athy. Body wall edema is noted. ABDOMEN MRCP: The common duct is not well visualized, but is normal in caliber. IMPRESSION: 1. Innumerable liver masses and abdominal lymphadenopathy, consistent with metastatic disease. 2. Large volume of ascites. 3. Small pleural effusions. Reviewed, dictated and finalized at location A. IMPRESSION: 1. Innumerable liver masses and abdominal lymphadenopathy, consistent with meta static disease. 2. Large volume of ascites. 3. Small pleural effusions.
--- NOTE | ~2023-01-28 | XR_ITS ---
EXAMINATION: XR chest 1V portable Exam Date/Time: 01/28/2023 17:15 CDT HISTORY: Hypotension Comparison: 01/23/2023. RESULT: Lines, tubes, and devices: Implanted right chest port, terminating in the right atrium. Lungs and pleura: Low volumes with crowding. Cardiomediastinal silhouette: Stable. Other: No acute osseous or upper abdominal finding. IMPRESSION: No acute cardiopulmonary process. Reviewed, dictated and finalized at location K.
[2023-01-28 15:09] VITALS: BP 86/56; PULSE 101; RESP 14; TEMP 36.6; O2SAT 98
--- NOTE | 2023-01-28 15:18 | ECG_ITS ---
Measurements Intervals [place] Rate: 96 P: 43 TX: 118 QRS: -64 QRSD: 77 T: 97 QT: 352 QTc: 447 Interpretive Statements SINUS RHYTHM WITH SHORT TX INTERVAL LEFT AXIS DEVIATION LOW QRS VOLTAGE IN LIMB LEADS INFERIOR INFARCT, AGE INDETERMINATE ANTEROLATERAL INFARCT, AGE INDETERMINATE BORDERLINE ST-T WAVE ABNORMALITY- HIGH LATERAL LEADS BASELINE ARTIFACT- I, II, AVR, AVL, AVF, V1-V6 ABNORMAL ECG COMPARED TO ECG 11/28/2022 18:13:15 NO SIGNIFICANT CHANGES Electronically Signed On 01-28-2023 15:54:51 CDT by Abdifatah Alcantara D.O.
[2023-01-28 15:39] LABS: Basophils Percent Auto 0.2 % (0.2-1.2); Hematocrit 40.7 % (37.0-47.0); Hemoglobin 14.3 g/dL (12.0-15.0); Immature Granulocyte Absolute 0.52 K/mm3 (0.00-0.031); Immature Granulocyte Percent A 2.3 % (0-0.5); Lymphocytes Absolute Auto 2.39 K/mm3 (0.9-3.2); Lymphocytes Percent Auto 10.6 % (18.3-44.2); Mean Corpuscular HGB Conc 35.1 g/dl (32-36); Mean Corpuscular Hemoglobin 33.2 pg (26-34); Mean Corpuscular Volume 94.4 fl (80-100); Mean Platelet Volume 11.2 fl (7.4-10.4); Monocytes Absolute Auto 0.9 K/mm3 (0.1-0.6); Monocytes Percent Auto 4.1 % (2.6-8.5); Neutrophils Absolute Auto 18.6 K/mm3 (1.3-6.7); Neutrophils Percent Auto 82.8 % (45.5-73.1); Platelet Count Result 200 k/mm3 (150-375); Red Blood Count 4.31 M/mm3 (4.2-5.4); Red Cell Distribution Width 17.8 % (11.5-14.5); White Blood Count 22.5 K/mm3 (4.5-10.0)
[2023-01-28 15:56] LABS: Alanine Aminotransferase 42 U/L (6-35); Albumin Level 2.4 g/dL (3.5-5.1); Anion Gap 12 mmol/L (8-16); Aspartate Amino Transferase 209 U/L (14-36); Bilirubin,Total 13.2 mg/dL (0.2-1.3); Blood Urea Nitrogen 54 mg/dL (7-17); Calcium 7.3 mg/dL (8.4-10.2); Carbon Dioxide 20 mmol/L (22-30); Chloride 101 mmol/L (98-107); Estimated CRCL calculation 11 ml/min; Estimated Glomerular Filt Rate 18; Glucose 94 mg/dL (65-110); Potassium 3.4 mmol/L (3.4-5.0); Sodium 133 mmol/L (137-145)
[2023-01-28 16:14] LABS: Alkaline Phosphatase 2264 U/L (38-126)
[2023-01-28] MEDS: SODIUM CHLORIDE 0.9% IV 1,000 ML 999 ML IV CONT (17:17)
--- NOTE | 2023-01-28 17:47 | ED.WEAKNESS ---
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 She denies chest pain, cough, vomiting or diarrhea. She states that she is scheduled for chemotherapy tomorrow, but wanted to be evaluated prior. Her family members, who are at bedside also notes she would like to be admitted to a penitentiary. She lives at home alone. She has had 1 recent fall, without loss of consciousness. Related Data Home Medications Medication Instructions Recorded Confirmed acetaminophen 500 mg capsule 500 mg PO Q6H PRN Pain 12/12/22 01/23/23 multivitamin 1 tablet PO DAILY 12/12/22 01/23/23 furosemide 20 mg tablet 20 mg DAILY 01/16/23 01/23/23 ondansetron 8 mg disintegrating 8 mg Q8H PRN NAUSA 01/16/23 01/23/23 tablet potassium chloride 20 mEq 20 meq PO DAILY 01/16/23 01/23/23 tablet,extended release(part/cryst) Allergies Allergy/AdvReac Type Severity Reaction Status Date / Time No Known Allergies Allergy Verified 01/23/23 11:27 Review of Systems Review of Systems: CONSTITUTIONAL: Denies fever, chills, or sweats. ENT: Denies rhinorrhea, congestion, sore throat, or otalgia. CARDIOVASCULAR: Denies chest pain, palpitations, or edema. RESPIRATORY: Denies cough or dyspnea. GASTROINTESTINAL: Denies abdominal pain, nausea, vomiting, or diarrhea. GENITOURINARY: Denies dysuria or hematuria. SKIN: Denies rash or itching. MUSCULOSKELETAL: Denies back pain, joint pain, or myalgia. NEUROLOGIC: Generalized weakness denies headache, numbness, dizziness PSYCHIATRIC: Denies anxiety or depression. 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 She is and lives alone. Her only biological daughter is . She has a stepdaughter and a friend who would be her surrogate decision makers. She is a lifelong nonsmoker. She rarely drinks alcohol and only in small amounts. She denies any illicit substance use. 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 Code status: DNR/DNI (per patient request) Smoking status: Never smoker Second hand tobacco smoke exposure: No Alcohol intake: never Alcohol use details: Rare and in small amounts Substance use: never Substance use type: does not use Lack of Transportation: No Lack of Food: Never True Current Housing: I Have Housing Concerned About Future Housing: No Difficulty Paying Gas/Electric Bills: No Difficulty Paying for Meds: No Currently Unemployed: No Education: Don't Know Difficulty w/ Childcare or Family Care: No Living arrangements: alone Spiritual care concerns: No Exam Narrative: GENERAL: Well-developed, well-nourished, and in no acute distress. Jaundiced HEAD: Normocephalic, atraumatic. EYES: PERRLA and EOMI. ENT: Nares clear, no rhinorrhea or epistaxis. Mucous membranes moist. Oropharynx without tonsillar hypertrophy exudate or other lesions. CHEST: Clear to auscultation. No respiratory distress. No w
[2023-01-28 18:44] VITALS: BP 92/63; PULSE 78; RESP 14; O2SAT 96
[2023-01-28] MEDS: CALCIUM GLUCONATE 1,000 MG/10 ML VIAL 2000 MG IV PUSH (18:47)
[2023-01-28] MEDS: cefTRIAXone 2 GM/NS 100 ML 2 GM/100 ML BAG IVPB (18:47)
[2023-01-28 18:49] LABS: Lactic Acid Reflex 3.1 mmol/L (0.7-2.0)
[2023-01-28 19:42] LABS: Influenza A QL RT-PCR Negative (Negative); Influenza B QL RT-PCR Negative (Negative); SARS-CoV-2 RNA PCR Negative (Negative)
[2023-01-28 20:59] VITALS: BP 98/64; PULSE 83; RESP 18; O2SAT 98
[2023-01-28 21:20] VITALS: BP 98/62; PULSE 87; RESP 18; TEMP 36.8; O2SAT 97
[2023-01-28 21:20] LABS: Reflex Lactic Acid Yes or No Add Lactic
[2023-01-28 21:21] VITALS: BMI 22.8
--- NOTE | 2023-01-28 21:27 | ADMGEN ---
This patient, Charo Carroll, was admitted to 3 Med Surg Room 329-01 @2121. Patient/family oriented to hospital policies and general routines including ID bracelet, bed and alarms, visiting hours, pain management, procedures, bathroom and other care routines, personal items, smoking policy, room service/diet, and visiting hours. Information on how to activate the Rapid Response Team has been discussed. Patient/Family are encouraged to report perceived risks to care and to ask questions if they do not understand what they are told or what they should do.
[2023-01-28 21:49] LABS: Lactic Acid 2.4 mmol/L (0.7-2.0)
[2023-01-28] MEDS: SODIUM CHLORIDE 0.9% IV 1,000 ML 125 ML IV CONT (21:57)
[2023-01-29 00:14] LABS: Appearance Urine Cloudy (Clear); Bacteria Urine Rare /hpf; Bilirubin Urine 3+ (Negative); Blood Urine Trace (Negative); Color Urine Dark Yellow (Yellow); Glucose Urine UA Negative (Negative); Hyaline Casts Urine Present /lpf; Ketones Urine Negative (Negative); Leukocyte Esterase Ur 3+ LEU/UL (Negative); Nitrate Urine Negative (Negative); Non Pathogenic Casts >20; Protein Urine Trace mg/dL (Negative); Specific Grav Ur 1.014 (1.001-1.035); Squamous Epithelial Cell Urine Many /hpf (Few); WBC Clumps Urine Present /HPF; WBC Urine 51-100 /hpf; pH Urine 5.5 (5.0-9.0)
[2023-01-29 00:18] LABS: Add Urine Microscopic? YES
--- NOTE | 2023-01-29 05:29 | PM.IMHP ---
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 The patient reports he last had her chemotherapy 3 weeks ago. Since then she has been so weak that she does barely can get up out of bed and move around. She has absolutely no appetite most the time but this morning actually states she feels like she could eat something. She has not been having any nausea or vomiting. She denies any diarrhea. She was having some abdominal cramping just before I saw her this morning but she had a bowel movement and her abdominal pain has resolved. She denies any fevers or chills. She has been having generalized malaise. She denies cough or congestion. Her white count in the ER was 22.5. Her hemoglobin was elevated above her baseline at 14.3. Her sodium was slightly lower than her usual and she had acute kidney injury with BUN of 54 and creatinine 2.5. She denies any changes in urinary frequency or urgency. She did have some lactic acidosis. Her transaminitis was relatively stable but her bilirubin had climbed to 13.2. The patient was given a dose of Rocephin in the ER but an infection source had not yet been localized. Her urine that was obtained after she arrived to the medical floor did demonstrate findings consistent with UTI. The patient evidently received a dose of calcium gluconate in the ER as there was no other known source for the patient's weakness. However patient's calcium level corrects when based on her albumin. Review of Systems Review of Systems: 12 systems were reviewed with pertinent positives and negatives per HPI. Except as documented in the HPI, all other systems were reviewed and are negative. [facility] Past Medical History Medical History (Updated 01/29/23 @ 07:21 by Alice Hinojosa DO) Bilateral pulmonary embolism (11/2022) Bile duct cancer DVT (deep venous thrombosis) Mass of multiple sites of liver Metastatic disease Surgical History Surgical History (Updated 01/29/23 @ 07:20 by Alice Hinojosa DO) Lipoma of left thigh Status post excision Port-A-Cath in place Initial placement of a left-sided Port-A-Cath with subsequent removal due to malfunction with replacement of Port-A-Cath December 2022 Status post cataract extraction of both eyes with insertion of intraocular lens Family History Family History Daughter Diabetes mellitus Father , At age 75 Pneumonia Mother , At age 84 Jaundice Cancer Social History Social History Social History: 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 She is and lives alone. Her only biological daughter is . She has a stepdaughter and a friend who would be her surrogate decision makers. She is a lifelong nonsmoker. She rarely drinks alcohol and only in small amounts. She denies any illicit substance use. 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 Code status: DNR/DNI (per patient request) Smoking status: Never smoker Second hand tobacco smoke exposure: No Alcohol intake: never Alcohol use details: Rare and in small amounts Substance use: never Substance use type: does not use Lack of Transportation: No Lack of Food: Never True Current Housing: I Have Housing Concerned About Future Housing: No Difficulty Paying Gas/Electric Bills: No Difficulty Paying for Meds: No Currently Unemployed: No Education: High School Diploma/GED Difficulty w/ Childcare or Family Care: No Living arrangements: alone Spiritual care concerns: No Meds Home Medications and Allergies Home Medications Medicatio
[2023-01-29 05:30] VITALS: BP 98/57; PULSE 90; RESP 16; TEMP 36.6; O2SAT 100
[2023-01-29 06:33] LABS: Basophils Absolute Auto 0.1 K/mm3 (0.0-0.1); Basophils Percent Auto 0.3 % (0.2-1.2); Hematocrit 38.5 % (37.0-47.0); Hemoglobin 13.3 g/dL (12.0-15.0); Immature Granulocyte Absolute 0.41 K/mm3 (0.00-0.031); Immature Granulocyte Percent A 1.8 % (0-0.5); Lymphocytes Absolute Auto 1.99 K/mm3 (0.9-3.2); Lymphocytes Percent Auto 8.8 % (18.3-44.2); Mean Corpuscular HGB Conc 34.5 g/dl (32-36); Mean Corpuscular Volume 95.5 fl (80-100); Mean Platelet Volume 11.8 fl (7.4-10.4); Monocytes Absolute Auto 1.3 K/mm3 (0.1-0.6); Monocytes Percent Auto 5.7 % (2.6-8.5); Neutrophils Absolute Auto 18.9 K/mm3 (1.3-6.7); Neutrophils Percent Auto 83.4 % (45.5-73.1); Platelet Count Result 185 k/mm3 (150-375); Red Blood Count 4.03 M/mm3 (4.2-5.4); Red Cell Distribution Width 17.8 % (11.5-14.5); White Blood Count 22.7 K/mm3 (4.5-10.0)
[2023-01-29 06:42] LABS: Lactic Acid Reflex 2.3 mmol/L (0.7-2.0)
[2023-01-29 07:09] LABS: Alanine Aminotransferase 42 U/L (6-35); Albumin Level 2.2 g/dL (3.5-5.1); Anion Gap 12 mmol/L (8-16); Aspartate Amino Transferase 206 U/L (14-36); Bilirubin,Total 12.8 mg/dL (0.2-1.3); Blood Urea Nitrogen 54 mg/dL (7-17); Calcium 7.4 mg/dL (8.4-10.2); Carbon Dioxide 20 mmol/L (22-30); Chloride 103 mmol/L (98-107); Estimated CRCL calculation 12 ml/min; Estimated Glomerular Filt Rate 19; Glucose 66 mg/dL (65-110); Sodium 135 mmol/L (137-145)
[2023-01-29 07:10] LABS: Platelet Estimate Adequate (Adequate); Schistocytes None Seen (NORMAL); Target Cells 1+ (NORMAL)
[2023-01-29 07:11] LABS: Crenated RBC 2+ (NORMAL)
[2023-01-29 07:49] LABS: Alkaline Phosphatase 2058 U/L (38-126)
[2023-01-29 08:34] VITALS: BP 92/54; PULSE 86; RESP 16; O2SAT 92
[2023-01-29] MEDS: SODIUM CHLORIDE 0.9% IV 1,000 ML 125 ML IV CONT (09:58)
[2023-01-29 10:02] VITALS: O2SAT 93
[2023-01-29] MEDS: droNABinol (*CRX) 2.5 MG CAPSULE PO ×2 (10:02→17:30)
[2023-01-29] MEDS: POTASSIUM CHLORIDE 20 MEQ ER TABLET PO (10:02)
[2023-01-29] MEDS: APIXABAN 5 MG TABLET PO ×2 (10:02→17:32)
[2023-01-29] MEDS: POTASSIUM CHLORIDE 20 MEQ ER TABLET 40 MEQ PO (10:02)
[2023-01-29 13:07] VITALS: BP 92/69; PULSE 89; RESP 16; TEMP 37.1; O2SAT 98
[2023-01-29 13:37] VITALS: BMI 22.8
[2023-01-29 13:51] LABS: Lactic Acid Reflex 2.9 mmol/L (0.7-2.0)
--- NOTE | 2023-01-29 13:52 | PM.IMPN ---
Progress Note: A&P Assessment and Plan (1) UTI (urinary tract infection): Qualifiers: Urinary tract infection type: site unspecified Hematuria presence: without hematuria Qualified Code(s): N39.0 - Urinary tract infection, site not specified Code(s): N39.0 - Urinary tract infection, site not specified Status: Acute (2) ANDRADE (acute kidney injury): Code(s): N17.9 - Acute kidney failure, unspecified Status: Acute (3) Lactic acidosis: Code(s): E87.20 - Acidosis, unspecified Status: Acute (4) Hypocalcemia: Code(s): E83.51 - Hypocalcemia Status: Acute (5) Bile duct cancer: Code(s): C24.0 - Malignant neoplasm of extrahepatic bile duct Status: Acute Plan The patient's urine looks suspicious for UTI. This was explained the patient's elbow white blood cell count and acutely worsening weakness over the last few days. Will continue Rocephin that was initiated in the ER. Will wait bloody urine culture results. The patient has acute kidney injury. She has been having some elevated creatinine since her recent diagnosis of biliary cancer. At this point I would be spread the patient does not have some mild component of chronic kidney disease. Will continue IV fluid hydration. The patient was treated for hypo calcemia in the ER. Review actually correct for the patient's albumin the patient's calcium is 8.6 which was within the normal limit. Repeat electrolyte panel has been ordered as discussed above. Regarding the patient's cancers she states she is supposed to have chemotherapy today as outpatient. I told her that that could not occur while she was acutely hospitalized with a possible infection.r. I suspect a component the patient's weakness is due to her decreased oral intake. She does have protein calorie malnutrition but her weight is relatively stable. pt seen and examined at bedside Pt admitted for UTI awaiting UC Continue iv rocephin DC IV fluids once lactate level is nl Pt feels like her calves are sore ? edema ? 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 The patient reports he last had her chemotherapy 3 weeks ago.? Since then she has been so weak that she does barely can get up out of bed and move around.? She has absolutely no appetite most the time but this morning actually states she feels like she could eat something.? Pt admitted for UTI awaiting UC Continue iv rocephin DC IV fluids once lactate level is nl Pt feels like her calves are sore ? edema ? DVT we will order venous Doppler today Review of Systems Review of Systems: Sore calves overall tired Exam Narrative: Weight 53 kg BMI 22.8 Const: Other: Chronically ill-appearing, no acute distress, thin body habitus, overtly jaundiced HENMT: Other: Sunken cheeks in eyes, mucous membranes are tacky, jaundice to the soft palate Eyes: Other: Marked scleral icterus, mild conjunctival pallor, pupils are equal and reactive Neck: Other: No JVD, no lymphadenopathy Resp: Other: Clear to auscultation bilaterally, no increased work of breathing Cardio: Other: Regular rate, regular rhythm, 2+ bilateral radial pedal pulses GI: Other: Distended abdomen, nontender, soft Skin: Other: Marked jaundice, mild pallor Neuro: Other: Alert oriented, speech is clear, no facial asymmetry, no localizing neurologic deficits noted during the course of conversation Extrem: Other: Chronic thickened dark in skin of bilateral lower extremities from chronic venous stasis left skin changes are worst in right but right leg is more swollen than left. The patient reports that these change
[2023-01-29 16:40] LABS: Reflex Lactic Acid Yes or No Add Lactic
[2023-01-29] MEDS: SODIUM CHLORIDE 0.9% IV 500 ML IV CONT (17:13)
[2023-01-29] MEDS: ALBUMIN HUMAN 25% 25 GM/100 ML 100 ML IVPB (17:14)
[2023-01-29] MEDS: SODIUM CHLORIDE 0.9% IV 1,000 ML 70 ML IV CONT (17:30)
[2023-01-29 18:23] LABS: Lactic Acid 2.5 mmol/L (0.7-2.0)
[2023-01-29 19:50] VITALS: PULSE 89; RESP 16; O2SAT 98
[2023-01-29] MEDS: CENTRAL LINE FLUSH 10 ML IV PUSH (20:10)
[2023-01-29 22:00] VITALS: BP 102/58; PULSE 82; RESP 14; TEMP 37; O2SAT 97
[2023-01-30] MEDS: CENTRAL LINE FLUSH 10 ML IV PUSH ×2 (05:43→20:25)
[2023-01-30 06:00] VITALS: BP 106/62; PULSE 77; RESP 14; TEMP 36.6; O2SAT 98
[2023-01-30 06:15] LABS: Hematocrit 31.9 % (37.0-47.0); Immature Platelet Fraction Pct 3.6 % (0.9-11.2); Mean Corpuscular HGB Conc 34.5 g/dl (32-36); Mean Corpuscular Hemoglobin 32.9 pg (26-34); Mean Corpuscular Volume 95.5 fl (80-100); Mean Platelet Volume 11.1 fl (7.4-10.4); Platelet Count Result 131 k/mm3 (150-375); Red Blood Count 3.34 M/mm3 (4.2-5.4); Red Cell Distribution Width 17.4 % (11.5-14.5); White Blood Count 18.1 K/mm3 (4.5-10.0)
[2023-01-30 06:23] LABS: Alanine Aminotransferase 34 U/L (6-35); Albumin Level 2.1 g/dL (3.5-5.1); Anion Gap 12 mmol/L (8-16); Aspartate Amino Transferase 163 U/L (14-36); Blood Urea Nitrogen 48 mg/dL (7-17); Calcium 6.9 mg/dL (8.4-10.2); Carbon Dioxide 17 mmol/L (22-30); Chloride 106 mmol/L (98-107); Estimated CRCL calculation 13 ml/min; Estimated Glomerular Filt Rate 21; Glucose 97 mg/dL (65-110); Sodium 135 mmol/L (137-145)
[2023-01-30 06:28] LABS: Alkaline Phosphatase 1614 U/L (38-126)
[2023-01-30] MEDS: SODIUM CHLORIDE 0.9% IV 1,000 ML 70 ML IV CONT (09:08)
[2023-01-30] MEDS: droNABinol (*CRX) 2.5 MG CAPSULE PO ×2 (09:09→17:28)
[2023-01-30] MEDS: APIXABAN 5 MG TABLET PO ×2 (09:09→17:28)
[2023-01-30] MEDS: POTASSIUM CHLORIDE 20 MEQ ER TABLET PO (09:09)
[2023-01-30 14:00] VITALS: BP 106/64; RESP 12; TEMP 36.6
--- NOTE | 2023-01-30 15:27 | PM.IMPN ---
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 The patient reports he last had her chemotherapy 3 weeks ago.? Since then she has been so weak that she does barely can get up out of bed and move around.? She has absolutely no appetite most the time but this morning actually states she feels like she could eat something.? Workup in the ER showed leukocytosis of 22,000 along with ANDRADE with creatinine of 2.5 baseline creatinine around low 1. Hypokalemia and lactic acidosis. She aLso had elevated LFTs which is at baseline due to her underlying stage IV biliary cancer. Urinalysis revealed UTI. Influenza and COVID test negative. Chest x-ray showed no acute cardiopulmonary process. CT abdomen pelvis showed anasarca with small bilateral pleural effusion small pericardial effusion moderate to large amount of ascites and extensive mesenteric and body wall edema. Numerous hypodense masses throughout the enlarged liver consistent with biopsy-proven metastatic disease. Suggestion of some wall thickening along the descending and sigmoid colon which could be read due to colitis. Alternatively this could also be related to anasarca which is of indeterminate etiology. 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 No significant change in mild para-aortic lymphadenopathy which could be reactive or metastatic. Venous duplex ultrasound of lower extremity was performed 01/29/2023 which shows no evidence of deep venous thrombosis. She is started on IV fluids which will be discontinued today. Will continue albumin as ordered. Rocephin has been started for her UTI. Follow urine culture. WBC count continues to improve today along with improvement in her renal function. Blood culture x2 is noted negative to date. Recheck labs in a.m.. 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 The patient reports he last had her chemotherapy 3 weeks ago.? Since then she has been so weak that she does barely can get up out of bed and move around.? She has absolutely no appetite most the time but this morning actually states she feels like she could eat something.? Workup in the ER showed leukocytosis of 22,000 along with ANDRADE with creatinine of 2.5 baseline creatinine around low 1. Hypokalemia and lactic acidosis. She aLso had elevated LFTs which is at baseline due to her underlying stage IV biliary cancer. Urinalysis revealed UTI. Influenza and COVID test negative. Chest x-ray showed no acute cardiopulmonary process. CT abdomen pelvis showed anasarca with small bilateral pleural effusion small pericardial effusion moderate to large amount of ascites and extensive mesenteric and body wall edema. Numerous hypodense masses throughout the enlarged liver consistent with biopsy-proven metastatic disease. Suggestion of some wall thickening
[2023-01-30] MEDS: ALBUMIN HUMAN 25% 25 GM/100 ML 100 ML IVPB ×2 (17:30→23:58)
[2023-01-30] MEDS: POTASSIUM CHLORIDE 20 MEQ PACKET (FOR LIQUID) 40 MEQ FEED TUBE (20:25)
[2023-01-30 22:00] VITALS: BP 103/71; PULSE 87; RESP 16; TEMP 36.6; O2SAT 96
[2023-01-31] MEDS: ALBUMIN HUMAN 25% 25 GM/100 ML 100 ML IVPB ×3 (05:31→19:59)
[2023-01-31] MEDS: CENTRAL LINE FLUSH 10 ML IV PUSH ×3 (05:32→22:27)
[2023-01-31 05:41] LABS: Basophils Absolute Auto 0.1 K/mm3 (0.0-0.1); Basophils Percent Auto 0.3 % (0.2-1.2); Eosinophils Percent Auto 0.1 % (0-4.4); Hematocrit 32.3 % (37.0-47.0); Hemoglobin 11.3 g/dL (12.0-15.0); Immature Granulocyte Absolute 0.26 K/mm3 (0.00-0.031); Immature Granulocyte Percent A 1.4 % (0-0.5); Immature Platelet Fraction Pct 3.4 % (0.9-11.2); Lymphocytes Absolute Auto 2.01 K/mm3 (0.9-3.2); Lymphocytes Percent Auto 10.6 % (18.3-44.2); Mean Corpuscular Hemoglobin 33.4 pg (26-34); Mean Corpuscular Volume 95.6 fl (80-100); Monocytes Percent Auto 5.3 % (2.6-8.5); Neutrophils Absolute Auto 15.6 K/mm3 (1.3-6.7); Neutrophils Percent Auto 82.3 % (45.5-73.1); Platelet Count Result 129 k/mm3 (150-375); Red Blood Count 3.38 M/mm3 (4.2-5.4); Red Cell Distribution Width 17.2 % (11.5-14.5); White Blood Count 18.9 K/mm3 (4.5-10.0)
[2023-01-31 05:57] LABS: Alanine Aminotransferase 32 U/L (6-35); Albumin Level 2.7 g/dL (3.5-5.1); Anion Gap 11 mmol/L (8-16); Aspartate Amino Transferase 143 U/L (14-36); Bilirubin,Total 12.9 mg/dL (0.2-1.3); Blood Urea Nitrogen 45 mg/dL (7-17); Calcium 7.1 mg/dL (8.4-10.2); Carbon Dioxide 17 mmol/L (22-30); Chloride 109 mmol/L (98-107); Estimated CRCL calculation 15 ml/min; Estimated Glomerular Filt Rate 25; Glucose 82 mg/dL (65-110); Magnesium 1.7 mg/dL (1.6-2.3); Potassium 3.2 mmol/L (3.4-5.0); Sodium 137 mmol/L (137-145)
[2023-01-31 05:59] LABS: Alkaline Phosphatase 1410 U/L (38-126)
[2023-01-31 06:00] VITALS: BP 111/75; PULSE 83; RESP 18; TEMP 36.6; O2SAT 100
[2023-01-31] MEDS: POTASSIUM CHLORIDE 20 MEQ ER TABLET 40 MEQ PO (08:43)
[2023-01-31] MEDS: APIXABAN 5 MG TABLET PO ×2 (08:44→17:49)
[2023-01-31] MEDS: POTASSIUM CHLORIDE 20 MEQ ER TABLET PO (08:44)
[2023-01-31] MEDS: droNABinol (*CRX) 2.5 MG CAPSULE PO ×2 (08:44→17:49)
--- NOTE | 2023-01-31 12:19 | PM.IMPN ---
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 The patient reports he last had her chemotherapy 3 weeks ago.? Since then she has been so weak that she does barely can get up out of bed and move around.? She has absolutely no appetite most the time but this morning actually states she feels like she could eat something.? Workup in the ER showed leukocytosis of 22,000 along with ANDRADE with creatinine of 2.5 baseline creatinine around low 1. Hypokalemia and lactic acidosis. She aLso had elevated LFTs which is at baseline due to her underlying stage IV biliary cancer. Urinalysis revealed UTI. Influenza and COVID test negative. Chest x-ray showed no acute cardiopulmonary process. CT abdomen pelvis showed anasarca with small bilateral pleural effusion small pericardial effusion moderate to large amount of ascites and extensive mesenteric and body wall edema. Numerous hypodense masses throughout the enlarged liver consistent with biopsy-proven metastatic disease. Suggestion of some wall thickening along the descending and sigmoid colon which could be read due to colitis. Alternatively this could also be related to anasarca which is of indeterminate etiology. 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 No significant change in mild para-aortic lymphadenopathy which could be reactive or metastatic. Venous duplex ultrasound of lower extremity was performed 01/29/2023 which shows no evidence of deep venous thrombosis. She is started on IV fluids which was discontinued 01/30. Started on albumin with improvement in her swelling. Rocephin has been started for her UTI. Follow urine culture. WBC count continues to improve but stable today. Renal function continues to improve. Blood culture x2 is noted negative to date. Replace potassium. 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 The patient reports he last had her chemotherapy 3 weeks ago.? Since then she has been so weak that she does barely can get up out of bed and move around.? She has absolutely no appetite most the time but this morning actually states she feels like she could eat something.? Workup in the ER showed leukocytosis of 22,000 along with ANDRADE with creatinine of 2.5 baseline creatinine around low 1. Hypokalemia and lactic acidosis. She aLso had elevated LFTs which is at baseline due to her underlying stage IV biliary cancer. Urinalysis revealed UTI. Influenza and COVID test negative. Chest x-ray showed no acute cardiopulmonary process. CT abdomen pelvis showed anasarca with small bilateral pleural effusion small pericardial effusion moderate to large amount of ascites and extensive mesenteric and body wall edema. Numerous hypodense masses throughout the enlarged liver consistent with biopsy-proven metastatic disease. Suggestion of some
[2023-01-31] MEDS: SODIUM CHLORIDE 0.9% IV 1,000 ML 30 ML IV CONT (13:59)
[2023-01-31 14:00] VITALS: BP 108/67; PULSE 85; RESP 20; TEMP 36.6; O2SAT 100
[2023-01-31] MEDS: KCL 40 MEQ/WATER 100 ML 100 ML 25 ML IVPB (14:00)
[2023-01-31 22:00] VITALS: BP 113/71; PULSE 83; RESP 14; TEMP 36.2; O2SAT 97
[2023-02-01] MEDS: ALBUMIN HUMAN 25% 25 GM/100 ML 100 ML IVPB ×4 (01:17→20:15)
[2023-02-01] MEDS: CENTRAL LINE FLUSH 10 ML IV PUSH ×3 (05:31→22:14)
[2023-02-01 06:00] VITALS: BP 120/74; PULSE 86; RESP 20; TEMP 36.3; O2SAT 97
[2023-02-01 06:56] LABS: Basophils Absolute Auto 0.1 K/mm3 (0.0-0.1); Basophils Percent Auto 0.3 % (0.2-1.2); Eosinophils Percent Auto 0.1 % (0-4.4); Hematocrit 30.2 % (37.0-47.0); Hemoglobin 10.3 g/dL (12.0-15.0); Immature Granulocyte Absolute 0.17 K/mm3 (0.00-0.031); Immature Platelet Fraction Pct 4.8 % (0.9-11.2); Lymphocytes Absolute Auto 1.71 K/mm3 (0.9-3.2); Lymphocytes Percent Auto 9.9 % (18.3-44.2); Mean Corpuscular HGB Conc 34.1 g/dl (32-36); Mean Corpuscular Hemoglobin 33.2 pg (26-34); Mean Corpuscular Volume 97.4 fl (80-100); Monocytes Absolute Auto 1.1 K/mm3 (0.1-0.6); Monocytes Percent Auto 6.3 % (2.6-8.5); Neutrophils Absolute Auto 14.3 K/mm3 (1.3-6.7); Neutrophils Percent Auto 82.4 % (45.5-73.1); Platelet Count Result 127 k/mm3 (150-375); Red Cell Distribution Width 17.5 % (11.5-14.5); White Blood Count 17.3 K/mm3 (4.5-10.0)
[2023-02-01 07:07] LABS: Alanine Aminotransferase 26 U/L (6-35); Albumin Level 3.3 g/dL (3.5-5.1); Alkaline Phosphatase 1257 U/L (38-126); Anion Gap 12 mmol/L (8-16); Aspartate Amino Transferase 118 U/L (14-36); Bilirubin,Total 12.9 mg/dL (0.2-1.3); Blood Urea Nitrogen 38 mg/dL (7-17); Calcium 7.7 mg/dL (8.4-10.2); Carbon Dioxide 17 mmol/L (22-30); Chloride 112 mmol/L (98-107); Estimated CRCL calculation 18 ml/min; Estimated Glomerular Filt Rate 33; Glucose 83 mg/dL (65-110); Magnesium 1.7 mg/dL (1.6-2.3); Potassium 4.1 mmol/L (3.4-5.0); Sodium 141 mmol/L (137-145)
[2023-02-01] MEDS: droNABinol (*CRX) 2.5 MG CAPSULE PO ×2 (07:58→17:14)
[2023-02-01] MEDS: MULTIVITAMINS THERAPEUTIC TAB (*BKC) 1 TABLET PO (07:58)
[2023-02-01] MEDS: APIXABAN 5 MG TABLET PO ×2 (07:58→17:14)
[2023-02-01] MEDS: ACETAMINOPHEN 500 MG TABLET PO (11:12)
--- NOTE | 2023-02-01 12:30 | PM.IMPN ---
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 The patient reports he last had her chemotherapy 3 weeks ago.? Since then she has been so weak that she does barely can get up out of bed and move around.? She has absolutely no appetite most the time but this morning actually states she feels like she could eat something.? Workup in the ER showed leukocytosis of 22,000 along with ANDRADE with creatinine of 2.5 baseline creatinine around low 1. Hypokalemia and lactic acidosis. She aLso had elevated LFTs which is at baseline due to her underlying stage IV biliary cancer. Urinalysis revealed UTI. Influenza and COVID test negative. Chest x-ray showed no acute cardiopulmonary process. CT abdomen pelvis showed anasarca with small bilateral pleural effusion small pericardial effusion moderate to large amount of ascites and extensive mesenteric and body wall edema. Numerous hypodense masses throughout the enlarged liver consistent with biopsy-proven metastatic disease. Suggestion of some wall thickening along the descending and sigmoid colon which could be read due to colitis. Alternatively this could also be related to anasarca which is of indeterminate etiology. 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 No significant change in mild para-aortic lymphadenopathy which could be reactive or metastatic. Venous duplex ultrasound of lower extremity was performed 01/29/2023 which shows no evidence of deep venous thrombosis. She is started on IV fluids which was discontinued 01/30. Started on albumin with improvement in her swelling. Rocephin has been started for her UTI. Follow urine culture which remains negative. WBC count continues to improve but still persistent. Review of CT showed some possible sigmoid colitis. Will add anaerobic coverage with Flagyl. Renal function continues to improve and back to baseline. Blood culture x2 is noted negative to date. 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 The patient reports he last had her chemotherapy 3 weeks ago.? Since then she has been so weak that she does barely can get up out of bed and move around.? She has absolutely no appetite most the time but this morning actually states she feels like she could eat something.? Workup in the ER showed leukocytosis of 22,000 along with ANDRADE with creatinine of 2.5 baseline creatinine around low 1. Hypokalemia and lactic acidosis. She aLso had elevated LFTs which is at baseline due to her underlying stage IV biliary cancer. Urinalysis revealed UTI. Influenza and COVID test negative. Chest x-ray showed no acute cardiopulmonary process. CT abdomen pelvis showed anasarca with small bilateral pleural effusion small pericardial effusion moderate to large amount of ascites and extensive mesenteric and body wall edema. Haris
[2023-02-01] MEDS: metroNIDAZOLE 500 MG/ISO 100ML 500 MG/100 ML BAG 100 MG IVPB ×2 (12:43→17:14)
[2023-02-01 14:00] VITALS: BP 95/66; PULSE 79; RESP 16; TEMP 36.9; O2SAT 99
[2023-02-01] MEDS: ACETAMINOPHEN 325 MG TABLET 650 MG PO (17:14)
[2023-02-01 20:00] VITALS: PULSE 79; RESP 16; O2SAT 99
[2023-02-01 22:00] VITALS: BP 107/72; PULSE 88; RESP 16; TEMP 37; O2SAT 97
[2023-02-02] MEDS: metroNIDAZOLE 500 MG/ISO 100ML 500 MG/100 ML BAG 100 MG IVPB ×4 (00:08→16:52)
[2023-02-02] MEDS: ALBUMIN HUMAN 25% 25 GM/100 ML 100 ML IVPB ×4 (02:04→19:40)
[2023-02-02] MEDS: CENTRAL LINE FLUSH 10 ML IV PUSH ×3 (05:58→22:16)
[2023-02-02 06:00] VITALS: BP 107/68; PULSE 84; RESP 16; TEMP 36.6; O2SAT 100
[2023-02-02] MEDS: ACETAMINOPHEN 500 MG TABLET PO (06:06)
[2023-02-02 06:16] LABS: Basophils Absolute Auto 0.1 K/mm3 (0.0-0.1); Basophils Percent Auto 0.6 % (0.2-1.2); Eosinophils Absolute Auto 0.1 K/mm3 (0-0.3); Eosinophils Percent Auto 0.3 % (0-4.4); Hematocrit 28.4 % (37.0-47.0); Immature Granulocyte Percent A 1.3 % (0-0.5); Immature Platelet Fraction Pct 4.8 % (0.9-11.2); Lymphocytes Absolute Auto 1.65 K/mm3 (0.9-3.2); Lymphocytes Percent Auto 10.5 % (18.3-44.2); Mean Corpuscular HGB Conc 35.2 g/dl (32-36); Mean Corpuscular Hemoglobin 33.8 pg (26-34); Mean Corpuscular Volume 95.9 fl (80-100); Mean Platelet Volume 11.3 fl (7.4-10.4); Monocytes Absolute Auto 1.1 K/mm3 (0.1-0.6); Neutrophils Absolute Auto 12.6 K/mm3 (1.3-6.7); Neutrophils Percent Auto 80.3 % (45.5-73.1); Platelet Count Result 129 k/mm3 (150-375); Red Blood Count 2.96 M/mm3 (4.2-5.4); Red Cell Distribution Width 17.6 % (11.5-14.5); White Blood Count 15.7 K/mm3 (4.5-10.0)
[2023-02-02 06:29] LABS: Alanine Aminotransferase 23 U/L (6-35); Albumin Level 3.5 g/dL (3.5-5.1); Alkaline Phosphatase 1066 U/L (38-126); Anion Gap 14 mmol/L (8-16); Aspartate Amino Transferase 109 U/L (14-36); Bilirubin,Total 12.6 mg/dL (0.2-1.3); Blood Urea Nitrogen 35 mg/dL (7-17); Calcium 7.7 mg/dL (8.4-10.2); Carbon Dioxide 15 mmol/L (22-30); Chloride 113 mmol/L (98-107); Estimated CRCL calculation 23 ml/min; Estimated Glomerular Filt Rate 43; Glucose 87 mg/dL (65-110); Magnesium 1.6 mg/dL (1.6-2.3); Potassium 3.8 mmol/L (3.4-5.0); Sodium 142 mmol/L (137-145)
[2023-02-02] MEDS: droNABinol (*CRX) 2.5 MG CAPSULE PO ×2 (08:26→16:52)
[2023-02-02] MEDS: APIXABAN 5 MG TABLET PO ×2 (08:26→16:52)
[2023-02-02] MEDS: MULTIVITAMINS THERAPEUTIC TAB (*BKC) 1 TABLET PO (08:27)
--- NOTE | 2023-02-02 10:37 | PM.IMPN ---
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 The patient reports he last had her chemotherapy 3 weeks ago.? Since then she has been so weak that she does barely can get up out of bed and move around.? She has absolutely no appetite most the time but this morning actually states she feels like she could eat something.? Workup in the ER showed leukocytosis of 22,000 along with ANDRADE with creatinine of 2.5 baseline creatinine around low 1. Hypokalemia and lactic acidosis. She aLso had elevated LFTs which is at baseline due to her underlying stage IV biliary cancer. Urinalysis revealed UTI. Influenza and COVID test negative. Chest x-ray showed no acute cardiopulmonary process. CT abdomen pelvis showed anasarca with small bilateral pleural effusion small pericardial effusion moderate to large amount of ascites and extensive mesenteric and body wall edema. Numerous hypodense masses throughout the enlarged liver consistent with biopsy-proven metastatic disease. Suggestion of some wall thickening along the descending and sigmoid colon which could be read due to colitis. Alternatively this could also be related to anasarca which is of indeterminate etiology. 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 No significant change in mild para-aortic lymphadenopathy which could be reactive or metastatic. Venous duplex ultrasound of lower extremity was performed 01/29/2023 which shows no evidence of deep venous thrombosis. She is started on IV fluids which was discontinued 01/30. Started on albumin with improvement in her swelling. Rocephin has been started for her UTI. Follow urine culture which remains negative. WBC count continues to improve but still persistent. Review of CT showed some possible sigmoid colitis. Added anaerobic coverage with Flagyl. Renal function continues to improve and back to baseline. Blood culture x2 is noted negative to date. DVT prophylaxis with apixaban. Will start gentle diuresis as tolerated with Lasix 20 mg daily along with albumin. Goals of care discussion to ensue. Will involve oncologist. 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 The patient reports he last had her chemotherapy 3 weeks ago.? Since then she has been so weak that she does barely can get up out of bed and move around.? She has absolutely no appetite most the time but this morning actually states she feels like she could eat something.? Workup in the ER showed leukocytosis of 22,000 along with ANDRADE with creatinine of 2.5 baseline creatinine around low 1. Hypokalemia and lactic acidosis. She aLso had elevated LFTs which is at baseline due to her underlying stage IV biliary cancer. Urinalysis revealed UTI. Influenza and COVID test negative. Chest x-ray showed no acute cardiopulmonary process. CT abdomen pelvis showed anasarca with sma
[2023-02-02] MEDS: SODIUM CHLORIDE 0.9% IV 1,000 ML 30 ML IV CONT (13:51)
[2023-02-02 14:00] VITALS: BP 110/72; PULSE 83; RESP 18; TEMP 36.4; O2SAT 98
[2023-02-02] MEDS: ACETAMINOPHEN 325 MG TABLET 650 MG PO (16:51)
[2023-02-02] MEDS: FUROSEMIDE 20 MG TABLET PO (16:52)
[2023-02-02 20:00] VITALS: PULSE 83; RESP 18; O2SAT 98
[2023-02-02 21:05] VITALS: BP 104/65; PULSE 90; RESP 12; TEMP 36.7; O2SAT 99
[2023-02-03] MEDS: metroNIDAZOLE 500 MG/ISO 100ML 500 MG/100 ML BAG 100 MG IVPB ×4 (00:47→17:17)
[2023-02-03] MEDS: ALBUMIN HUMAN 25% 25 GM/100 ML 100 ML IVPB ×4 (02:00→21:03)
[2023-02-03] MEDS: CENTRAL LINE FLUSH 10 ML IV PUSH ×3 (05:55→23:58)
[2023-02-03 06:00] VITALS: BP 115/72; PULSE 89; RESP 16; TEMP 36.4; O2SAT 94
[2023-02-03 06:17] LABS: Basophils Absolute Auto 0.1 K/mm3 (0.0-0.1); Basophils Percent Auto 0.6 % (0.2-1.2); Eosinophils Percent Auto 0.3 % (0-4.4); Hematocrit 28.3 % (37.0-47.0); Hemoglobin 9.7 g/dL (12.0-15.0); Immature Granulocyte Absolute 0.17 K/mm3 (0.00-0.031); Immature Granulocyte Percent A 1.1 % (0-0.5); Immature Platelet Fraction Pct 3.9 % (0.9-11.2); Lymphocytes Absolute Auto 1.58 K/mm3 (0.9-3.2); Lymphocytes Percent Auto 10.1 % (18.3-44.2); Mean Corpuscular HGB Conc 34.3 g/dl (32-36); Mean Corpuscular Hemoglobin 33.6 pg (26-34); Mean Corpuscular Volume 97.9 fl (80-100); Mean Platelet Volume 10.8 fl (7.4-10.4); Monocytes Absolute Auto 1.1 K/mm3 (0.1-0.6); Monocytes Percent Auto 6.9 % (2.6-8.5); Neutrophils Absolute Auto 12.6 K/mm3 (1.3-6.7); Platelet Count Result 144 k/mm3 (150-375); Red Blood Count 2.89 M/mm3 (4.2-5.4); Red Cell Distribution Width 17.8 % (11.5-14.5); White Blood Count 15.6 K/mm3 (4.5-10.0)
[2023-02-03 06:27] LABS: Alanine Aminotransferase 22 U/L (6-35); Albumin Level 3.7 g/dL (3.5-5.1); Alkaline Phosphatase 879 U/L (38-126); Anion Gap 15 mmol/L (8-16); Aspartate Amino Transferase 108 U/L (14-36); Bilirubin,Total 13.6 mg/dL (0.2-1.3); Blood Urea Nitrogen 34 mg/dL (7-17); Calcium 7.9 mg/dL (8.4-10.2); Carbon Dioxide 16 mmol/L (22-30); Chloride 112 mmol/L (98-107); Estimated CRCL calculation 21 ml/min; Estimated Glomerular Filt Rate 39; Glucose 75 mg/dL (65-110); Magnesium 1.5 mg/dL (1.6-2.3); Potassium 3.8 mmol/L (3.4-5.0); Sodium 143 mmol/L (137-145)
[2023-02-03] MEDS: MAGNESIUM SULF 2 GM/WATER 50ML 2 GM/50 ML BAG IVPB (08:23)
[2023-02-03] MEDS: ACETAMINOPHEN 325 MG TABLET 650 MG PO (08:25)
[2023-02-03] MEDS: FUROSEMIDE 20 MG TABLET PO ×2 (08:26→17:17)
[2023-02-03] MEDS: MULTIVITAMINS THERAPEUTIC TAB (*BKC) 1 TABLET PO (08:26)
[2023-02-03] MEDS: droNABinol (*CRX) 2.5 MG CAPSULE PO ×2 (08:26→17:17)
[2023-02-03] MEDS: APIXABAN 5 MG TABLET PO ×2 (08:26→17:17)
--- NOTE | 2023-02-03 13:40 | PCNFU ---
Nutrition Follow-Up Complete: Severe protein calorie malnutrition related to chronic cancer, as evidenced by weight loss 7.5%/3 months; intakes <75% needs >1 month; NFPE findings of severe muscle wasting and fat loss Goal:PO intake at least 75% meals and supplements Maintain weight pt not meeting goal. Continue with current goal. Pt current nutrition is Regular. Nutrition recommendation: Encourage po intake Last recorded weight is 53 kg. Bowel Motility: +BM 02/03 Labs Reviewed: Hgb:9.7, HCT:28.3, GFR:39, BUN:34, Cr:1.3 Meds Noted: eliquis, marinol, lasix, zofran, KCL Skin: no skin issues noted Additional Notes: pt continues on a regular diet, intake remains poor at 10-25% of meals. Pt does not like the nutrition ice cream cups, refuses Ensure supplements, states they are all too sweet. Encouraged intake of meals, to order preferences each meal. Monitoring intakes, weights, labs, supplement tolerance, plan of care Follow up in 5 days
[2023-02-03 14:00] VITALS: BP 100/66; PULSE 90; RESP 14; TEMP 36.5; O2SAT 99
--- NOTE | 2023-02-03 14:34 | PM.IMPN ---
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 The patient reports he last had her chemotherapy 3 weeks ago.? Since then she has been so weak that she does barely can get up out of bed and move around.? She has absolutely no appetite most the time but this morning actually states she feels like she could eat something.? Workup in the ER showed leukocytosis of 22,000 along with ANDRADE with creatinine of 2.5 baseline creatinine around low 1. Hypokalemia and lactic acidosis. She aLso had elevated LFTs which is at baseline due to her underlying stage IV biliary cancer. Urinalysis revealed UTI. Influenza and COVID test negative. Chest x-ray showed no acute cardiopulmonary process. CT abdomen pelvis showed anasarca with small bilateral pleural effusion small pericardial effusion moderate to large amount of ascites and extensive mesenteric and body wall edema. Numerous hypodense masses throughout the enlarged liver consistent with biopsy-proven metastatic disease. Suggestion of some wall thickening along the descending and sigmoid colon which could be read due to colitis. Alternatively this could also be related to anasarca which is of indeterminate etiology. 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 No significant change in mild para-aortic lymphadenopathy which could be reactive or metastatic. Venous duplex ultrasound of lower extremity was performed 01/29/2023 which shows no evidence of deep venous thrombosis. She is started on IV fluids which was discontinued 01/30. Started on albumin with improvement in her swelling. Rocephin has been started for her UTI. Follow urine culture which remains negative. WBC count continues to improve but still persistent. Review of CT showed some possible sigmoid colitis. Added anaerobic coverage with Flagyl. Renal function continues to improve and back to baseline. Blood culture x2 is noted negative to date. DVT prophylaxis with apixaban. Started on Lasix diuresis as tolerated with Lasix 20 mg twice daily along with albumin. Goals of care discussion to ensue. Consulted oncologist. Await his input. Opening up palliative care/hospice conversation be reasonable unless Oncology thinks otherwise. 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 The patient reports he last had her chemotherapy 3 weeks ago.? Since then she has been so weak that she does barely can get up out of bed and move around.? She has absolutely no appetite most the time but this morning actually states she feels like she could eat something.? Workup in the ER showed leukocytosis of 22,000 along with ANDRADE with creatinine of 2.5 baseline creatinine around low 1. Hypokalemia and lactic acidosis. She aLso had elevated LFTs which is at baseline due to her underlying stage IV biliary cancer. Urinalysis revealed UTI. Influenza and C
--- NOTE | 2023-02-03 18:53 | PC.NURSE ---
Patient had only voided once this shift at 1800. Fusing Machine Tender did a post residual void and patient was still retaining 900mL. Fusing Machine Tender called Chayo to update him on patient condition, but no answer at this time. Will call again.
[2023-02-03 20:20] VITALS: PULSE 90; RESP 14; O2SAT 99
[2023-02-03 22:00] VITALS: BP 112/68; PULSE 86; RESP 16; TEMP 36.3; O2SAT 100
[2023-02-04] MEDS: metroNIDAZOLE 500 MG/ISO 100ML 500 MG/100 ML BAG 100 MG IVPB ×4 (00:39→17:42)
[2023-02-04] MEDS: ALBUMIN HUMAN 25% 25 GM/100 ML 100 ML IVPB ×4 (02:00→20:38)
[2023-02-04] MEDS: ONDANSETRON HCL ODT 4 MG TABLET 8 MG PO (05:41)
[2023-02-04 06:00] VITALS: BP 106/62; PULSE 94; RESP 18; TEMP 36.4; O2SAT 97
[2023-02-04] MEDS: CENTRAL LINE FLUSH 10 ML IV PUSH ×3 (07:33→22:07)
[2023-02-04] MEDS: SODIUM CHLORIDE 0.9% IV 1,000 ML 30 ML IV CONT (07:34)
[2023-02-04 07:51] LABS: Basophils Absolute Auto 0.1 K/mm3 (0.0-0.1); Basophils Percent Auto 0.6 % (0.2-1.2); Eosinophils Absolute Auto 0.1 K/mm3 (0-0.3); Eosinophils Percent Auto 0.5 % (0-4.4); Hematocrit 29.1 % (37.0-47.0); Hemoglobin 9.8 g/dL (12.0-15.0); Immature Granulocyte Absolute 0.23 K/mm3 (0.00-0.031); Immature Granulocyte Percent A 1.3 % (0-0.5); Lymphocytes Absolute Auto 1.55 K/mm3 (0.9-3.2); Mean Corpuscular HGB Conc 33.7 g/dl (32-36); Mean Corpuscular Hemoglobin 33.4 pg (26-34); Mean Corpuscular Volume 99.3 fl (80-100); Mean Platelet Volume 10.7 fl (7.4-10.4); Monocytes Absolute Auto 1.4 K/mm3 (0.1-0.6); Monocytes Percent Auto 8.3 % (2.6-8.5); Neutrophils Absolute Auto 13.9 K/mm3 (1.3-6.7); Neutrophils Percent Auto 80.3 % (45.5-73.1); Platelet Count Result 163 k/mm3 (150-375); Red Blood Count 2.93 M/mm3 (4.2-5.4); Red Cell Distribution Width 18.6 % (11.5-14.5); White Blood Count 17.3 K/mm3 (4.5-10.0)
[2023-02-04 07:59] LABS: Alanine Aminotransferase 24 U/L (6-35); Albumin Level 3.8 g/dL (3.5-5.1); Alkaline Phosphatase 954 U/L (38-126); Anion Gap 16 mmol/L (8-16); Aspartate Amino Transferase 125 U/L (14-36); Bilirubin,Total 14.7 mg/dL (0.2-1.3); Blood Urea Nitrogen 35 mg/dL (7-17); Carbon Dioxide 13 mmol/L (22-30); Chloride 114 mmol/L (98-107); Estimated CRCL calculation 21 ml/min; Estimated Glomerular Filt Rate 39; Glucose 79 mg/dL (65-110); Magnesium 1.9 mg/dL (1.6-2.3); Potassium 3.4 mmol/L (3.4-5.0); Sodium 143 mmol/L (137-145)
--- NOTE | 2023-02-04 08:05 | PC.NURSE ---
2220 Pt bladder scanned for 800cc fluid p SC of 150cc. 16f hart catheter started per Dr Diaz order on post void residual. Continued to have low output. Catheter was flushed and placement confirmed. Dr Hinojosa came to the floor anatoly. 5080 and used the ultra sound machine from ICU. She determined that the bladder scanner was having difficulty distinguishing between the urine in the bladder and the abdominal ascites fluid.
[2023-02-04] MEDS: SALIVA SUBSTITUTE RINSE 473 ML BOTTLE 15 ML PO (10:48)
--- NOTE | 2023-02-04 11:30 | PCOTNOTE ---
Attempted to see Patient at this time. Patient out of the room at this time. Patient having a MRCP test done at this time per RN.
--- NOTE | 2023-02-04 11:37 | PCPTNOTE ---
The patient treatment was not able to be completed due to patient out of room for testing. Will plan to continue treatment per plan of care.
[2023-02-04] MEDS: APIXABAN 5 MG TABLET PO ×2 (12:48→20:38)
[2023-02-04] MEDS: droNABinol (*CRX) 2.5 MG CAPSULE PO ×2 (12:48→20:39)
[2023-02-04] MEDS: FUROSEMIDE 20 MG TABLET PO ×2 (12:48→20:39)
[2023-02-04 14:00] VITALS: BP 104/65; PULSE 97; RESP 18; TEMP 36.7; O2SAT 100
--- NOTE | 2023-02-04 14:37 | WPDGICN ---
Assessment and Plan Assessment and plan (1) Malignant neoplasm of biliary tract, unspecified: Code(s): C24.9 - Malignant neoplasm of biliary tract, unspecified Status: Chronic Assessment and Plan: unfortunately she has advanced metastatic disease imaging reviewed and she has multiple liver lesions, bile duct with normal size without obstruction, I do not think that ERCP with stenting will make a difference. I believe that jaundice is from multiple liver mets, previous chemotherapy prognosis is poor oncology will evaluate patient (2) Elevated liver enzymes: Code(s): R74.8 - Abnormal levels of other serum enzymes Status: Acute Assessment and Plan: with liver mets (3) ANDRADE (acute kidney injury): Code(s): N17.9 - Acute kidney failure, unspecified Status: Acute Assessment and Plan: this has improved (4) Mass of multiple sites of liver: Code(s): R16.0 - Hepatomegaly, not elsewhere classified Status: Acute (5) UTI (urinary tract infection): Qualifiers: Urinary tract infection type: site unspecified Hematuria presence: without hematuria Qualified Code(s): N39.0 - Urinary tract infection, site not specified Code(s): N39.0 - Urinary tract infection, site not specified Status: Acute Assessment and Plan: on abx (6) Protein calorie malnutrition: Code(s): E46 - Unspecified protein-calorie malnutrition Status: Acute Assessment and Plan: poor appetite with weight loss (7) Anasarca: Code(s): R60.1 - Generalized edema Status: Acute GI Consult Note Consult date/time: 02/04/23 14:37 Reason for consult: jaundice, metastatic biliary cancer, failure to thrive HPI: Charo Carroll is a 82 year old female with 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 She was admitted 6 days ago with generalized weakness, anorexia without nausea, weight loss and lack of energy. On admission she was found to have ANDRADE with creatinine 2.5 but improved since down to 1.3 now, also had elevated bili 13-14, diagnosed with UTI and started on ABX. CT scan showed anasarca, multiple liver mets. I was called because persistent jaundice. Finally MRCP obtained and reviewed, ?Innumerable liver masses and abdominal lymphadenopathy, consistent with metastatic disease, normal bile duct size without obstruction, Large volume of ascites, Small pleural effusions. Review of Systems Constitutional: Constitutional: Reports lethargy and Reports weakness Eyes: Eyes: Denies blurry vision ENT: Reports Normal hearing present Cardiovascular: Cardiovascular: Reports leg edema Respiratory: Respiratory: Denies cough Gastrointestinal: Gastrointestinal: Denies abdominal pain Genitourinary: Comments: dark urine Musculoskeletal: Musculoskeletal: Denies neck pain Integumentary/Breasts: Comments: icteric Neurologic: Denies confusion Psychiatric: Psychiatric: Denies behavioral changes [facility] Past Medical History Medical History (Updated 02/04/23 @ 14:43 by Marco A Johnson MD) Anasarca Bilateral pulmonary embolism (11/2022) Bile duct cancer DVT (deep venous thrombosis) Elevated liver enzymes Mass of multiple sites of liver Metastatic disease Protein calorie malnutrition Surgical History Surgical History (Updated 01/29/23 @ 07:20 by Alice Hinojosa DO) Lipoma of left thigh Status post excision Port-A-Cath in place Initial placement of a left-sided Port-A-Cath with subsequent removal due to malfunction with replacement of Port-A-Cath December 2022 Status post cataract extraction of both eyes with insertion of intraocular lens Family History Family History Daughter Diabetes mellitus Father , At age 75 Pneumonia Mother , At age 84 Jaundice Cancer
--- NOTE | 2023-02-04 15:08 | PM.IMPN ---
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 The patient reports he last had her chemotherapy 3 weeks ago.? Since then she has been so weak that she does barely can get up out of bed and move around.? She has absolutely no appetite most the time but this morning actually states she feels like she could eat something.? Workup in the ER showed leukocytosis of 22,000 along with ANDRADE with creatinine of 2.5 baseline creatinine around low 1. Hypokalemia and lactic acidosis. She aLso had elevated LFTs which is at baseline due to her underlying stage IV biliary cancer. Urinalysis revealed UTI. Influenza and COVID test negative. Chest x-ray showed no acute cardiopulmonary process. CT abdomen pelvis showed anasarca with small bilateral pleural effusion small pericardial effusion moderate to large amount of ascites and extensive mesenteric and body wall edema. Numerous hypodense masses throughout the enlarged liver consistent with biopsy-proven metastatic disease. Suggestion of some wall thickening along the descending and sigmoid colon which could be read due to colitis. Alternatively this could also be related to anasarca which is of indeterminate etiology. 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 No significant change in mild para-aortic lymphadenopathy which could be reactive or metastatic. Venous duplex ultrasound of lower extremity was performed 01/29/2023 which shows no evidence of deep venous thrombosis. She is started on IV fluids which was discontinued 01/30. Started on albumin with improvement in her swelling. Rocephin has been started for her UTI. Follow urine culture which remains negative. WBC count continues to improve but still persistent. Review of CT showed some possible sigmoid colitis. Added anaerobic coverage with Flagyl. Renal function continues to improve and back to baseline. Blood culture x2 is noted negative to date. DVT prophylaxis with apixaban. Started on Lasix diuresis as tolerated with Lasix 20 mg twice daily along with albumin. Goals of care discussion with continued treatment versus palliative care/hospice. Consulted oncologist. Await his input. Oncology suggested GI consultation which was obtained yesterday. MRCP was performed today which did not indicate any biliary obstruction and hence ERCP not indicated. Multiple liver masses present on the MRI/MRCP. Discussed with GI. Change antibiotics to cefepime and continue on Flagyl WBC count went up today. 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 The patient reports he last had her chemotherapy 3 weeks ago.? Since then she has been so weak that she does barely can get up out of bed and move around.? She has absolutely no appetite most the time but this morning a
[2023-02-04] MEDS: CEFEPIME 1 GM/NS 50 ML 1 GM/50 ML BAG IVPB (16:53)
--- NOTE | 2023-02-04 20:06 | PDONCCN ---
HPI - Date of Consult Date/Time: 02/04/23 20:06 Requesting Physician: Corey Jimenez MD Primary Care Provider: Christy Mckeon MD - Consult Narrative Reason for consult: Metastatic biliary carcinoma Narrative: Charo Carroll is a 82 year old female with recent diagnosis of metastatic adenocarcinoma moderately differentiated status post liver biopsy on November 29, 2022. Likely primary biliary carcinoma. Patient started chemotherapy with FOLFOX regimen and was last seen in the office on January 13 for cycle 2 of chemotherapy. She was developing worsening of jaundice and MRCP was performed. She came into the hospital with generalized weakness poor appetite and weight loss. She is complaining of abdominal pain and back pain. Labs showed elevated bilirubin 13.2. Urine showed evidence of UTI. She received antibiotic. Patient was also found to have hypocalcemia and received calcium supplement. CT abdomen and pelvis was done on January 29 that showed anasarca, bilateral pleural effusion and large volume of ascites with extensive mesenteric and body wall edema. There was numerous liver masses. She remains quite tired and fatigue. Review of Systems - Review of Systems All systems reviewed & are unremarkable except as noted in HPI and bel - Neurologic Reports hearing normal, Reports weakness, Denies behavioral changes, Denies confusion [facility] Medical History: Medical History (Last Updated 02/04/23 @ 14:43 by Marco A Johnson MD) Anasarca Bilateral pulmonary embolism Onset Date: 11/2022 Bile duct cancer DVT (deep venous thrombosis) Elevated liver enzymes Mass of multiple sites of liver Metastatic disease Protein calorie malnutrition Surgical History: Surgical History (Last Updated 01/29/23 @ 07:20 by Alice Hinojosa DO) Lipoma of left thigh Status post excision Port-A-Cath in place Initial placement of a left-sided Port-A-Cath with subsequent removal due to malfunction with replacement of Port-A-Cath December 2022 Status post cataract extraction of both eyes with insertion of intraocular lens Family History: Family History (Last Reviewed 01/29/23 @ 06:42 by Alice Hinojosa DO) Daughter Diabetes mellitus Father , At age 75 Pneumonia Mother , At age 84 Jaundice Cancer - Social History Social History: Social History (Last Reviewed 01/29/23 @ 06:42 by Alice Hinojosa DO) Alcohol Use: Alcohol intake: never Alcohol use details: Rare and in small amounts Substance Use: Substance use: never Substance use type: does not use Others: Spiritual care concerns: No Living Arrangements: Living arrangements: alone Smoking Status: Smoking status: Never smoker Second hand tobacco smoke exposure: No Social Determinants of Health: Has the Lack of Transportation Kept You From Medical Appointments or From Getting Medications?: No Within the Past 12 Months, Were You Worried Whether Your Food Would Run Out Before You Got Money to Buy More?: Never True What is Your Housing Situation Today?: I Have Housing Are You Worried That in the Next 2 Months, You May Not Have Your Own Housing to Live In?: No Do You Have Trouble Paying Your Heating Or Electricity Bill?: No Do You Have Trouble Paying For Medicines?: No Are You Currently Unemployed and Looking for Work?: No Highest Level of Education Completed: High School Diploma/GED Do You Have Trouble With Childcare or the Care of a Family Member?: No Exam - Vital Signs Vital Signs - 24 hr 02/03/23 20:20 02/03/23 22:00 02/04/23 06:00 Temperature 36.3 C L 36.4 C Pulse Rate 90 86 94 Respiratory Rate 14 16 18 Blood Pressure 112/68 106/62 Pulse Oximetry 99 100 97 Oxygen Delivery Room Air 02/04/23 08:35 02/04/23 14:00 Temperature 36.7 C Pulse Rate 97 Respiratory Rate 18 Blood Pressure 104/65 Pulse Oximetry 100 Oxy
[2023-02-04 22:00] VITALS: BP 100/75; PULSE 93; RESP 16; TEMP 36.3; O2SAT 96
[2023-02-05] MEDS: metroNIDAZOLE 500 MG/ISO 100ML 500 MG/100 ML BAG 100 MG IVPB ×2 (00:04→06:02)
[2023-02-05] MEDS: CEFEPIME 1 GM/NS 50 ML 1 GM/50 ML BAG IVPB (02:15)
[2023-02-05] MEDS: ALBUMIN HUMAN 25% 25 GM/100 ML 100 ML IVPB (02:56)
[2023-02-05 06:00] VITALS: BP 112/75; PULSE 102; RESP 18; TEMP 35.9; O2SAT 99
[2023-02-05] MEDS: CENTRAL LINE FLUSH 10 ML IV PUSH (06:02)
[2023-02-05 06:15] LABS: Basophils Absolute Auto 0.1 K/mm3 (0.0-0.1); Basophils Percent Auto 0.6 % (0.2-1.2); Eosinophils Absolute Auto 0.1 K/mm3 (0-0.3); Eosinophils Percent Auto 0.5 % (0-4.4); Hematocrit 24.2 % (37.0-47.0); Hemoglobin 8.1 g/dL (12.0-15.0); Immature Granulocyte Absolute 0.21 K/mm3 (0.00-0.031); Immature Granulocyte Percent A 1.4 % (0-0.5); Lymphocytes Absolute Auto 1.58 K/mm3 (0.9-3.2); Lymphocytes Percent Auto 10.6 % (18.3-44.2); Mean Corpuscular HGB Conc 33.5 g/dl (32-36); Mean Corpuscular Hemoglobin 33.5 pg (26-34); Mean Platelet Volume 10.1 fl (7.4-10.4); Monocytes Absolute Auto 1.2 K/mm3 (0.1-0.6); Monocytes Percent Auto 7.8 % (2.6-8.5); Neutrophils Absolute Auto 11.8 K/mm3 (1.3-6.7); Neutrophils Percent Auto 79.1 % (45.5-73.1); Platelet Count Result 154 k/mm3 (150-375); Red Blood Count 2.42 M/mm3 (4.2-5.4); Red Cell Distribution Width 19.1 % (11.5-14.5); White Blood Count 14.9 K/mm3 (4.5-10.0)
[2023-02-05 06:27] LABS: Alanine Aminotransferase 22 U/L (6-35); Alkaline Phosphatase 689 U/L (38-126); Anion Gap 19 mmol/L (8-16); Aspartate Amino Transferase 117 U/L (14-36); Blood Urea Nitrogen 41 mg/dL (7-17); Calcium 8.4 mg/dL (8.4-10.2); Carbon Dioxide 12 mmol/L (22-30); Chloride 115 mmol/L (98-107); Estimated CRCL calculation 16 ml/min; Estimated Glomerular Filt Rate 29; Glucose 78 mg/dL (65-110); Potassium 3.5 mmol/L (3.4-5.0); Sodium 146 mmol/L (137-145)
[2023-02-05] MEDS: APIXABAN 5 MG TABLET PO (08:32)
[2023-02-05] MEDS: droNABinol (*CRX) 2.5 MG CAPSULE PO (08:32)
[2023-02-05] MEDS: FUROSEMIDE 20 MG TABLET PO (08:32)
--- NOTE | 2023-02-05 11:51 | PM.DS ---
DS: Admitting Diagnosis Discharge Date 02/05/23 Admitting Diagnosis weakness DS: Discharge Diagnosis Discharge Diagnosis Plan metastatic moderately differentiated adenocarcinoma, hospice DS: Summary Hospital Course Hospital Course: Please see H&P by Dr. Hinojosa and progress note on 02/[address] Domingo for detailed history. In summary, Ms Charo Carroll is an 82F w/ metastatic moderately differentiated adenocarcinoma who was admitted with weakness and further clinical deterioration. After discussions with primary hospitalist team and oncology, she decided to pursue hospice care. She will be discharged today on 02/05 to [place] with [facility]. At the time of examination at 1145 she was in good spirit and did not have any complaints for me. Time Spent with Patient Time spent: Less than 30 minutes Exam Const: General: comfortable and no acute distress Resp: Effort & Inspection: normal respiratory effort Cardio: Rate: regular rate Rhythm: regular rhythm GI: GI Palp: Yes Soft to palpation Skin: Other: jaundiced Extrem: General: edema DS: Data Data Completed and Pending Labs on day of discharge: Labs from last 24 hours 02/05/23 06:07 WBC 14.9 H RBC 2.42 L Hgb 8.1 L Hct 24.2 L MCV 100.0 MCH 33.5 MCHC 33.5 RDW 19.1 H Plt Count 154 MPV 10.1 Immature Gran % (Auto) 1.4 H Neut % (Auto) 79.1 H Lymph % (Auto) 10.6 L [place] % (Auto) 7.8 Eos % (Auto) 0.5 Baso % (Auto) 0.6 Lymph # (Auto) 1.58 [place] # (Auto) 1.2 H Eos # (Auto) 0.1 Baso # (Auto) 0.1 Abs Immat Gran (auto) 0.21 H Absolute Neuts (auto) 11.8 H Absolute Nucleated RBC 0.0 Nucleated RBC % 0.0 Sodium 146 H Potassium 3.5 Chloride 115 H Carbon Dioxide 12 L Anion Gap 19 H BUN 41 H Creatinine 1.70 H Estim Creat Clear Calc 16 Estimated GFR 29 L Glucose 78 Calcium 8.4 Magnesium 2.0 Total Bilirubin 14.0 H AST 117 H ALT 22 Alkaline Phosphatase 689 H Total Protein 6.0 L Albumin 4.0 Discharge Plan Discharge Attending physician on discharge: Vivian Waters Consulting providers: Marco A Johnson; Hal Palafox Discharging Clinician: Vivian Waters Patient Disposition: SNF Activity: no preference Diet: as tolerated Discharge Instructions: Care per [facility] [place] Stand Alone Forms: Usp Discharge Discharge Medications: Discontinued multivitamin Tablet 1 tablet PO DAILY acetaminophen 500 mg Capsule 500 mg PO Q6H PRN (Reason: Pain) furosemide 20 mg tablet 20 mg PO BID potassium chloride 20 mEq tablet,ER particles/crystals 20 meq PO DAILY ondansetron 8 mg tablet,disintegrating 8 mg PO Q8H PRN (Reason: Nausea) dronabinol 2.5 mg capsule 2.5 mg PO BID Imodium 2 mg PO PRN Eliquis 5 mg tablet 5 mg PO BID Rx Instructions: 10 mg bid for 7 days then 5 mg daily Date of admission: 01/29/23 15:39 Primary Care Provider: Christy Mckeon Admitting Provider: Corey Jimenez Attending physician on admission: Corey Jimenez Condition: Serious
[2023-02-05] MEDS: HEPARIN SODIUM LOCK FLUSH 500 UNITS/5 ML SYRINGE IV PUSH (12:33)
[2023-02-05 12:41] LABS: SARS-CoV-2 RNA PCR Negative (Negative)
[2023-02-05 14:00] VITALS: BP 106/62; PULSE 98; RESP 18; TEMP 37.2; O2SAT 98
== END 2023-02-05 15:15 | disposition hospice, inpatient (51) | DRG 682 ==
LOC: ANHED 18:47 → ANH3MEDSUR 20:39
PROVIDERS: Emergency Medicine; Family Medicine; Internal Medicine; Admitting Provider Hospitalist; Emergency Provider Preventive Medicine Aerospace Medicine; PCP Family Medicine; Visit Provider General Practice
DX: N17.9 Acute kidney failure, unspecified (principal); E43 Unspecified severe protein-calorie malnutrition; C22.1 Intrahepatic bile duct carcinoma; E87.21 Acute metabolic acidosis; E87.1 Hypo-osmolality and hyponatremia; N39.0 Urinary tract infection, site not specified; E87.6 Hypokalemia; E83.51 Hypocalcemia; Z20.822 Contact with and (suspected) exposure to COVID-19; Z68.22 Body mass index [BMI] 22.0-22.9, adult; Z98.42 Cataract extraction status, left eye; Z98.41 Cataract extraction status, right eye; Z96.1 Presence of intraocular lens; Z51.5 Encounter for palliative care; Z86.711 Personal history of pulmonary embolism; Z86.718 Personal history of other venous thrombosis and embolism
CPT/HCPCS: 36415; 71045; 74176; 74183; 76376; 80053; 81001; 83605; 83735; 85025; 85027; 85055; 87040; 87086; 87088; 87635; 87636; 93005; 93970; 96361; 96365; 96375; 97163; 97165; 97530; 97535; 99285; A9270; A9577; J0612; J0692; J0696; J1642; J1836; J3475; J3480; J7030; J7040; P9047